=== PATIENT | female | born 1980 | race Caucasian/White ===

== ENCOUNTER → 2016-04-20 | Outpatient (REF) | payer BC ==
[~2016-04-20] MED LIST: /ESOM40CA OR; /LAMO10TA PO; ACET65TA OR; ACETAMINOPHEN PM PO; ADV100INH INH; B-12 INJ; CALCIUM ANTACID PO; CLARINEX PO; COLA100C2 OR; FIBEPOW11 PO; FLUOXETINE PO; HYDR50TA8 OR; HYDROXYZINE PO; LAXATIVE PO; LORA1TAB OR; MECLOFENAMATE PO; MELATONIN PO; METFORMIN PO; MIRALEX PO; MULTIVIT PO; NASONEX; OMEPPOW18 PO; PREM0.452 PO; PROZ40CA OR; SALI0.653; SENOKOT PO; TESS100C OR; VITAMIN B; VITAMIN D PO; [UNRECOGNIZED DRUG - CODE] PO; [UNRECOGNIZED DRUG - OTHER] PO; motrin PO; vicodin PO
== END ==
LOC: M SFHCPLAZ 17:03
PROVIDERS: ATTEND Family Medicine
DX: R35.0 Frequency of micturition (principal)

== ENCOUNTER 2016-04-29 16:53 | Emergency (ER) | payer BC ==
[2016-04-29] MEDS ORDERED: MORPHINE 2 MG/ML 1ML SYRINGE As Ordered ONE (19:23)
[2016-04-29] MEDS ORDERED: ONDANSETRON 4MG/2ML VIAL (J2405) As Ordered ONE (19:23)
[2016-04-29] MEDS ORDERED: GASTROGRAFIN SOLUTION 30ML (Q9963) As Ordered ONE (19:41)
[2016-04-29] MEDS ORDERED: NORCO, ANEXSIA 5/325MG TABLET (HYDROcodone/ACETAMINOPHEN) As Ordered ONE (19:50)
[2016-04-29] MEDS ORDERED: ONDANSETRON 4 MG ORAL DISINTEGRATING TAB (S0181) As Ordered ONE (19:50)
[2016-04-29 19:52] LABS: BASO # 0.1 K/mm3 (0.0-0.2); BASO % 1.3 % (0.0-1.0); EOS # 0.1 K/mm3 (0.0-0.50); EOS % 1.6 % (0.0-3.0); LARGE UNSTAINED CELL # 0.2 K/mm3 (0.0-0.4); LARGE UNSTAINED CELL % 2.8 % (0.0-4.0); LYMPH # 2.6 K/mm3 (1.5-4.5); LYMPH % 46.8 % (24.0-44.0); MEAN CORPUSCULAR HEMOGLOBIN 29.6 pg (27.0-33.0); MEAN CORPUSCULAR HGB CONC 32.8 g/dl (32.0-36.5); MEAN CORPUSCULAR VOLUME 90.3 fl (80.0-96.0); MONO # 0.2 K/mm3 (0.0-0.8); MONO % 4.4 % (0.0-5.0); NEUTROPHILS # 2.3 K/mm3 (1.8-7.7); NEUTROPHILS % 43.1 % (36.0-66.0); PLATELET COUNT, AUTOMATED 241 k/mm3 (150-450); RED CELL DISTRIBUTION WIDTH 14.2 % (11.5-14.5); WHITE BLOOD COUNT 5.2 K/mm3 (4.0-10.0)
[2016-04-29 20:52] LABS: ALBUMIN 3.6 GM/DL (3.2-5.2); ALBUMIN/GLOBULIN RATIO 1.33 (1.00-1.93); ALKALINE PHOSPHATASE 101 U/L (45-117); ALT/SGPT 28 U/L (12-78); AMYLASE 32 U/L (25-115); ANION GAP 8 MEQ/L (8-16); AST/SGOT 16 U/L (15-37); BILIRUBIN,DIRECT < 0.1 MG/DL (0.0-0.2); BILIRUBIN,TOTAL 0.2 MG/DL (0.2-1.0); BLOOD UREA NITROGEN 11 MG/DL (7-18); CALCIUM LEVEL 8.6 MG/DL (8.5-10.1); CARBON DIOXIDE LEVEL 26 MEQ/L (21-32); CHLORIDE LEVEL 106 MEQ/L (98-107); CREATININE FOR GFR 0.61 MG/DL (0.55-1.02); GLOMERULAR FILTRATION RATE > 60.0 (>60); GLUCOSE, FASTING 81 MG/DL (70-105); POTASSIUM SERUM 3.4 MEQ/L (3.5-5.1); SODIUM LEVEL 140 MEQ/L (136-145); TOTAL PROTEIN 6.3 GM/DL (6.4-8.2)
--- NOTE | 2016-04-29 22:10 | REPUSA ---
CT of the abdomen and pelvis without contrast Clinical statement: Pain. Technique: Multiple axial CT images were obtained from the base of the lungs to the floor of the pelv is utilizing 5 mm axial slices after administration of oral contrast. Coronal and sagittal reconstruc tions were also obtained. No comparison is available. Findings: Chest: The visualized lung bases are clear. Abdomen: The kidneys are normal in size bilaterally. There is no evidence of hydronephrosis or nephro lithiasis. The patient is status post gastric bypass. The liver, spleen, pancreas, and adrenal glands are unremarkable. The aorta demonstrates normal caliber and contour. There is no abdominal lymphaden opathy or ascites. Pelvis: The bowel is unremarkable, with no obstructive or inflammatory changes. The urinary bladder i s within normal limits. There is no pelvic lymphadenopathy or ascites. The other pelvic structures ap pear unremarkable. Bones: There are no suspicious osseous abnormalities seen. Impression: Unremarkable CT examination of the abdomen and pelvis.
--- NOTE | 2016-04-30 00:04 | EDDOCDS ---
Physician Documentation [facility] Name: Barb Dunne Age: 35 yrs Sex: Female : 1980 Arrival Date: 04/29/2016 Time: 16:53 Bed TR7 Private MD: So Hernandez E. Disposition: 04/29/16 23:11 Discharged to Home/Self Care. Impression: Upper abdominal pain, unspecified, Nausea with vomiting, unspecified, Diarrhea, unspecified. - Condition is Stable. - Discharge Instructions: Abdominal Pain, Adult, Diarrhea, Nausea and Vomiting. - Prescriptions for Bentyl 20 mg Oral Tablet - take 1 tablet by ORAL route every 6 hours As needed; 20 tablet. Pepcid 20 mg Oral Tablet - take 1 tablet by ORAL route once daily As needed; 20 tablet. ZOFRAN ODT 4 mg Oral - dissolve 1 tablet by ORAL route 3-4 times daily As needed do not chew, do not swallow whole; 20 tablet. - Medication Reconciliation, Local Pharmacy Hours form. - Follow up: Emergency Department; When: As needed; Reason: Worsening of conditions. Follow up: Private Physician; When: 2 - 3 days; Reason: Wound/Symptom Recheck, Recheck today's complaints, Continuance of care. - Problem is new. - Symptoms have improved. Historical: - Allergies: NSAIDS (gastric bypass); Reglan (gastric bypass); - Home Meds: 1. Vyvanse 70 mg oral cap 1 cap once daily 2. topiramate 150 mg oral CSpX 1 cap once daily 3. omeprazole 40 mg Oral cpDR 1 cap 2 times per day 4. montelukast 10 mg oral tab 1 tab once daily 5. lorazepam 1 mg Oral tab four times a day 6. Flovent 110 mcg/actuation Inhl aero 2 puffs 2 times per day 7. fluticasone 50 mcg/actuation nasal spsn once daily 8. levocetirizine 5 mg oral tab 1 tab once daily 9. lamotrigine 100mg in AM 200mg at HS Oral once daily 10. Hydroxyzine 100mg in am Oral 1 tab daily 11. trazodone 300 mg Oral tab at HS 12. Metformin Oral 2000mg at hs 13. Desvenlafaxine 100mg Oral AM 14. melatonin 5 mg Oral tab nightly 15. acetaminophen 500 mg Oral tab every 4 hours 16. Aleve 220 mg Oral tab 17. Antacid Liquid oral susp daily 18. Vitamin B-12 1,000 mcg Oral tab - PMHx: Asthma; Depression; GERD; Seasonal Allergies; PCOS; - PSHx: Gastric Bypass; Hysterectomy; Oophorectomy- bilateral; Cholecystectomy; - Social history: Smoking status: Patient states was never smoker of tobacco. No barriers to communication noted, The patient speaks fluent Tongan. - Family history: Not pertinent. - : The pt / caregiver states he / she is not on anticoagulants. Home medication list is obtained from the patient. - Exposure Risk Screening:: None identified. 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 4 in. (162.56 cm) (R); 21:51 BP 129 / 82; Pulse 64; Resp 16; Pulse Ox 98% on R/A; cz 23:01 BP 113 / 71; Pulse 67; Resp 18; Temp 98.9(TE); Pulse Ox 99% on R/A; Pain 6/10; jb5 16:55 Body Mass Index 26.61 (70.31 kg, 162.56 cm) dd6 MDM: 19:15 NS 0.9% 1000 ml IV at bolus once ordered. dt4 19:15 Ondansetron 4 mg IVP once ordered. dt4 19:15 IV Saline Lock ordered. dt4 19:15 Undress patient appropriately for examination ordered. dt4 19:15 morphine 2 mg IVP once ordered. dt4 19:16 Amylase Ordered. EDMS 19:16 Basic Metabolic Profile Ordered. EDMS 19:16 CBC with Diff Ordered. EDMS 19:16 Lipase Ordered. EDMS 19:16 Liver Profile Ordered. EDMS 19:16 Urinalysis Ordered. EDMS 19:16 CRP Ordered. EDMS 19:16 Urine Culture Ordered. EDMS 19:16 Type & Screen Ordered. EDMS 19:16 CT ABD & PELVIS: Oral Contrast Only Ordered. EDMS 19:16 NOTHING BY MOUTH+DIET ordered. EDMS 19:47 Ondansetron ODT Oral Disintegrating Tablet 4 mg PO once ordered. dt4 19:47 HYDROcodone-acetaminophen 5 mg-325 mg 1 tabs PO once ordered. dt4 19:48 Diatrizoate Meglumine & Sodium Liquid 10 ml PO once; mix in 290cc of water ordered. cz 20:12 Financial registration complete. zo 20:13 [facility] Payment Agreement was scanned into [employer] and attached to record. zo 20:13 Diatrizoate Meglumine & Sodium Liquid 10 ml PO once; mix in 290cc of water ordered. cz Administered Medications: 19:47 Not Given (Patient Refused): Ondansetron 4 mg IVP once dt4 19:47 Not Given (Patient Refused): morphine 2 mg IVP once dt4 19:48 Drug: Diatrizoate Meglumine & Sodium 10 ml [diatrizoate meglumine and diat.sodium 66 cz %-10 % oral solution (10 mL)] Route: PO; 19:50 Drug: NS 0.9% 1000 ml [sodium chloride 0.9 % intravenous solution] Route: IV; Rate: cz bolus; Site: right forearm; 04/30 00:03 Follow up: IV Status: Completed infusion cp1 04/29 19:53 Drug: Ondansetron ODT 4 mg [ondansetron 4 mg disintegrating tablet (1 tabs)] Route: PO; cz 19:53 Drug: HYDROcodone-acetaminophen 1 tabs [hydrocodone 5 mg-acetaminophen 325 mg tablet (1 cz tabs)] Route: PO; 20:13 Drug: Diatrizoate Meglumine & Sodium 10 ml [diatrizoate meglumine and diat.sodium 66 cz %-10 % oral solution (10 mL)] Route: PO; Signatures: [facility] Enrique Holland RN RN cz Olin, Zoeann zo Soosairaj, Rosemary, RN RN rs3 Belinda Perdomo LPN TRANSITION PROGRAM MANAGER cp1 Suma Ruby PA-C PA-C dt4 The chart was reviewed and I authenticate all verbal orders and agree with the evaluation and treatment provided.Attachments: 20:13 [facility] Payment Agreement zo MTDD
--- NOTE | 2016-04-30 00:05 | EDDOCDS ---
Nurse's Notes [facility] Name: Barb Dunne Age: 35 yrs Sex: Female : 1980 Arrival Date: 04/29/2016 Time: 16:53 Bed TR7 Private MD: So Hernandez E. Diagnosis: Upper abdominal pain, unspecified;Nausea with vomiting, unspecified;Diarrhea, unspecified Presentation: 04/29 17:04 Presenting complaint: Patient states: rectal bleeding, dizziness, diarrhea for a week. rs3 Adult Sepsis Screening: The patient does not have new or worsening altered mentation. Patient's respiratory rate is less than 22. Systolic blood pressure is greater than 100. Patient has a qSOFA score of 0- Negative Sepsis Screen. Suicide/Homicide risk assessment- the patient denies having any suicidal and/or homicidal ideations and does not present with any other emotional, behavioral or mental health complaints. Status: Patient is not a client service coordinator or dependent. Transition of care: patient was not received from another setting of care. 17:04 Acuity: CATARINA Level 3 rs3 17:04 Method Of Arrival: Walkin/Carried/Asstd rs3 Triage Assessment: 17:12 General: Appears in no apparent distress. Pain: Location: abdomen. HIV screening NA for rs3 this visit Offered previously. 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 Vyvanse 70 mg oral cap 1 cap once daily 2. topiramate 150 mg oral CSpX 1 cap once daily 3. omeprazole 40 mg Oral cpDR 1 cap 2 times per day 4. montelukast 10 mg oral tab 1 tab once daily 5. lorazepam 1 mg Oral tab four times a day 6. Flovent 110 mcg/actuation Inhl aero 2 puffs 2 times per day 7. fluticasone 50 mcg/actuation nasal spsn once daily 8. levocetirizine 5 mg oral tab 1 tab once daily 9. lamotrigine 100mg in AM 200mg at HS Oral once daily 10. Hydroxyzine 100mg in am Oral 1 tab daily 11. trazodone 300 mg Oral tab at HS 12. Metformin Oral 2000mg at hs 13. Desvenlafaxine 100mg Oral AM 14. melatonin 5 mg Oral tab nightly 15. acetaminophen 500 mg Oral tab every 4 hours 16. Aleve 220 mg Oral tab 17. Antacid Liquid oral susp daily 18. Vitamin B-12 1,000 mcg Oral tab - PMHx: Asthma; Depression; GERD; Seasonal Allergies; PCOS; - PSHx: Gastric Bypass; Hysterectomy; Oophorectomy- bilateral; Cholecystectomy; - Social history: Smoking status: Patient states was never smoker of tobacco. No barriers to communication noted, The patient speaks fluent Divehi. - Family history: Not pertinent. - : The pt / caregiver states he / she is not on anticoagulants. Home medication list is obtained from the patient. - Exposure Risk Screening:: None identified. Screenin:16 Screening information is obtained from prior medical records. Fall risk: No risks ms2 identified. Assistance ADL's: requires no assistance with activities of daily living. Abuse/DV Screen: The patient / caregiver reports he/she is: not in a situation that causes fear, pain or injury. Nutritional screening: No deficits noted. Advance Directives: Currently, there is no health care proxy. There is no active DNR order. There is no living will. There is no Power of Client Advocate. Advance directive information has not previously been placed in an [facility] medical record. Further advance directive information is declined. home support is adequate. Assessment: 19:14 General: Appears in no apparent distress, rectal exam done by PA -accompanied by marketing underwriter ms2 . Neurological: Level of Consciousness is awake, alert, obeys commands. Respiratory: Airway is patent Respiratory effort is even, unlabored, Respiratory pattern is regular, symmetrical. GI: Abdomen is flat, non- distended. Derm: Skin is pink, warm & dry. Musculoskeletal: Range of motion intact in all extremities. 19:26 General: marketing underwriter called to BR by pt ---pt having bright red blood on tissue paper and ms2 toilet water pinkened---PA aware. 20:02 General: Appears in no apparent distress, Behavior is appropriate for age. GI: Abdomen cz is obese, Abd is soft and non tender. 21:52 Reassessment: Patient appears in no apparent distress at this time. Patient states cz symptoms have improved. pt resting with stable vital signs and decrease in abdominal discomfort. 22:18 Adult Sepsis Screening: The patient does not have new or worsening altered mentation. cz Patient's respiratory rate is less than 22. Systolic blood pressure is greater than 100. Patient has a qSOFA score of 0- Negative Sepsis Screen. 22:21 General: Appears in no apparent distress, comfortable, Behavior is appropriate for age, jmb cooperative, Patient laying on stretcher, appears comfortable. Family at bedside. NO voiced complaints at this time. . Neurological: Level of Consciousness is awake, alert, obeys commands, Oriented to person, place, time. Respiratory: Airway is patent Respiratory effort is even, unlabored, Respiratory pattern is regular, symmetrical. 22:50 Reassessment: Patient appears in no apparent distress at this time. Patient states cz symptoms have improved. pt continues to rest quietly awaiting CT results. 22:59 General: Appears in no apparent distress, comfortable, Behavior is appropriate for age, jmb cooperative. Neurological: Level of Consciousness is awake, alert, obeys commands, Oriented to person, place, time. Respiratory: Airway is patent Respiratory effort is even, unlabored, Respiratory pattern is regular, symmetrical. Vital Signs: 16:55 BP 143 / 92; Pulse 83; Resp 18 S; Temp 96.4(O); Pulse Ox 98% on R/A; Weight 70.31 kg dd6 (R); Height 5 ft. 4 in. (162.56 cm) (R); 21:51 BP 129 / 82; Pulse 64; Resp 16; Pulse Ox 98% on R/A; cz 23:01 BP 113 / 71; Pulse 67; Resp 18; Temp 98.9(TE); Pulse Ox 99% on R/A; Pain 6/10; jb5 16:55 Body Mass Index 26.61 (70.31 kg, 162.56 cm) dd6 Vitals: 16:55 Log In Time: April 29, 2016 at 16:53. dd6 ED Course: 16:54 Patient visited by Giuseppe Casillas PCA. dd6 16:54 So Hernandez is Private Physician. dd6 16:54 Patient moved to Waiting dd6 16:56 Patient moved to Pre RCE dd6 17:05 Triage Initiated rs3 18:50 Patient moved to Triage 2 ct3 18:59 [facility] dt4 18:59 Cj Stone DO is Attending Physician. dt4 18:59 Patient visited by Suma Ruby PA-C. dt4 19:14 Patient visited by Caleb Macias,YANY. ms2 19:15 The patient / caregiver is instructed regarding the plan of care and ED course. ms2 19:21 Patient moved to I2 / M2 ms2 19:52 Patient visited by Belinda Perdomo LPN. cp1 20:02 Inserted saline lock: 20 gauge in right forearm. No procedures done that require cz assistance. 20:13 [facility] Payment Agreement was scanned into [employer] and attached to record. zo 20:19 Patient visited by Belinda Perdomo LPN. cp1 20:50 Patient visited by Belinda Perdomo LPN. cp1 20:58 Patient visited by Belinda Perdomo LPN. cp1 21:[address] jmb 21:49 Patient moved to I2 / M2 cz 21:51 Patient visited by Enrique Holland, YANY. cz 22:22 Patient visited by Derrell Schmitt RN. jmb 22:24 CT ABD & PELVIS: Oral Contrast Only Returned. EDMS 22:59 Patient visited by Derrell Schmitt,YANY. jmb 23:02 Patient visited by Lula Hu PCA. jb5 23:25 Patient moved to TR7 [facility] Administered Medications: 19:47 Not Given (Patient Refused): Ondansetron 4 mg IVP once dt4 19:47 Not Given (Patient Refused): morphine 2 mg IVP once dt4 19:48 Drug: Diatrizoate Meglumine & Sodium 10 ml [diatrizoate meglumine and diat.sodium 66 cz %-10 % oral solution (10 mL)] Route: PO; 19:50 Drug: NS 0.9% 1000 ml [sodium chloride 0.9 % intravenous solution] Route: IV; Rate: cz bolus; Site: right forearm; 04/30 00:03 Follow up: IV Status: Completed infusion 1 04/29 19:53 Drug: Ondansetron ODT 4 mg [ondansetron 4 mg disintegrating tablet (1 tabs)] Route: PO; cz 19:53 Drug: HYDROcodone-acetaminophen 1 tabs [hydrocodone 5 mg-acetaminophen 325 mg tablet (1 cz tabs)] Route: PO; 20:13 Drug: Diatrizoate Meglumine & Sodium 10 ml [diatrizoate meglumine and diat.sodium 66 cz %-10 % oral solution (10 mL)] Route: PO; Order Results: Lab Order: Amylase; SPEC'M 04/29/16 20:20 Test: AMYLASE; Value: 32; Range: 25-115; Units: U/L; Status: F Lab Order: Basic Metabolic Profile; SPEC'M 04/29/16 20:20 Test: GLUCOSE, FASTING; Value: 81; Range: 70-105; Units: MG/DL; Status: F Test: BLOOD UREA NITROGEN; Value: 11; Range: 7-18; Units: MG/DL; Status: F Test: CREATININE FOR GFR; Value: 0.61; Range: 0.55-1.02; Units: MG/DL; Status: F Test: GLOMERULAR FILTRATION RATE; Value: > 60.0; Range: >60; Status: F Test: SODIUM LEVEL; Value: 140; Range: 136-145; Units: MEQ/L; Status: F Test: POTASSIUM SERUM; Value: 3.4; Range: 3.5-5.1; Abnormal: Below low normal; Units: MEQ/L; Status: F Test: CHLORIDE LEVEL; Value: 106; Range: 98-107; Units: MEQ/L; Status: F Test: CARBON DIOXIDE LEVEL; Value: 26; Range: 21-32; Units: MEQ/L; Status: F Test: ANION GAP; Value: 8; Range: 8-16; Units: MEQ/L; Status: F Test: CALCIUM LEVEL; Value: 8.6; Range: 8.5-10.1; Units: MG/DL; Status: F Test Note: ; Units are mL/min/1.73 m2 Chronic Kidney Disease Staging per NKF: Stage I & II GFR >=60 Normal to Mildly Decreased Stage III GFR 30-59 Moderately Decreased Stage IV GFR 15-29 Severely Decreased Stage V GFR <15 Very Little GFR Left ESRD GFR <15 on 4TH GRADE TEACHER Lab Order: CBC with Diff; SPEC'M 04/29/16 19:30 Test: WHITE BLOOD COUNT; Value: 5.2; Range: 4.0-10.0; Units: K/mm3; Status: F Test: RED BLOOD COUNT; Value: 4.97; Range: 4.00-5.40; Units: M/mm3; Status: F Test: HEMOGLOBIN; Value: 14.7; Range: 12.0-16.0; Units: g/dl; Status: F Test: HEMATOCRIT; Value: 44.9; Range: 36.0-47.0; Units: %; Status: F Test: MEAN CORPUSCULAR VOLUME; Value: 90.3; Range: 80.0-96.0; Units: fl; Status: F Test: MEAN CORPUSCULAR HEMOGLOBIN; Value: 29.6; Range: 27.0-33.0; Units: pg; Status: F Test: MEAN CORPUSCULAR HGB CONC; Value: 32.8; Range: 32.0-36.5; Units: g/dl; Status: F Test: RED CELL DISTRIBUTION WIDTH; Value: 14.2; Range: 11.5-14.5; Units: %; Status: F Test: PLATELET COUNT, AUTOMATED; Value: 241; Range: 150-450; Units: k/mm3; Status: F Test: NEUTROPHILS %; Value: 43.1; Range: 36.0-66.0; Units: %; Status: F Test: LYMPH %; Value: 46.8; Range: 24.0-44.0; Abnormal: Above high normal; Units: %; Status: F Test: MONO %; Value: 4.4; Range: 0.0-5.0; Units: %; Status: F Test: EOS %; Value: 1.6; Range: 0.0-3.0; Units: %; Status: F Test: BASO %; Value: 1.3; Range: 0.0-1.0; Abnormal: Above high normal; Units: %; Status: F Test: LARGE UNSTAINED CELL %; Value: 2.8; Range: 0.0-4.0; Units: %; Status: F Test: NEUTROPHILS #; Value: 2.3; Range: 1.8-7.7; Units: K/mm3; Status: F Test: LYMPH #; Value: 2.6; Range: 1.5-4.5; Units: K/mm3; Status: F Test: MONO #; Value: 0.2; Range: 0.0-0.8; Units: K/mm3; Status: F Test: EOS #; Value: 0.1; Range: 0.0-0.50; Units: K/mm3; Status: F Test: BASO #; Value: 0.1; Range: 0.0-0.2; Units: K/mm3; Status: F Test: LARGE UNSTAINED CELL #; Value: 0.2; Range: 0.0-0.4; Units: K/mm3; Status: F Lab Order: Lipase; [facility] 04/29/16 20:20 Test: LIPASE; Value: 238; Range: 73-393; Units: U/L; Status: F Lab Order: Liver Profile; [facility] 04/29/16 20:20 Test: AST/SGOT; Value: 16; Range: 15-37; Units: U/L; Status: F Test: ALT/SGPT; Value: 28; Range: 12-78; Units: U/L; Status: F Test: ALKALINE PHOSPHATASE; Value: 101; Range: 45-117; Units: U/L; Status: F Test: BILIRUBIN,TOTAL; Value: 0.2; Range: 0.2-1.0; Units: MG/DL; Status: F Test: BILIRUBIN,DIRECT; Value: < 0.1; Range: 0.0-0.2; Units: MG/DL; Status: F Test: TOTAL PROTEIN; Value: 6.3; Range: 6.4-8.2; Abnormal: Below low normal; Units: GM/DL; Status: F Test: ALBUMIN; Value: 3.6; Range: 3.2-5.2; Units: GM/DL; Status: F Test: ALBUMIN/GLOBULIN RATIO; Value: 1.33; Range: 1.00-1.93; Status: F Lab Order: Type & Screen; [facility] 04/29/16 19:30 Test: BLOOD TYPE; Value: B POS; Status: F Test: AB SCREEN (INDIRECT MELODY)GEL; Value: NEGATIVE; Status: F Lab Order: Urinalysis; [facility] 04/29/16 19:18 Test: APPEARANCE, URINE; Value: HAZY; Range: CLEAR; Status: F Test: COLOR, URINE; Value: YELLOW; Range: YELLOW; Status: F Test: PH,URINE; Value: 5.0; Range: 5.0-9.0; Units: UNITS; Status: F Test: SPECIFIC GRAVITY URINE AUTO; Value: 1.019; Range: 1.002-1.035; Status: F Test: PROTEIN, URINE AUTO; Value: NEGATIVE; Range: NEGATIVE; Units: mg/dL; Status: F Test: GLUCOSE, URINE (UA) AUTO; Value: NEGATIVE; Range: NEGATIVE; Units: mg/dL; Status: F Test: KETONE, URINE AUTO; Value: TRACE; Range: NEGATIVE; Abnormal: Above high normal; Units: mg/dL; Status: F Test: UROBILINOGEN, URINE AUTO; Value: 0.2; Range: 0.0-2.0; Units: mg/dL; Status: F Test: BILIRUBIN, URINE AUTO; Value: NEGATIVE; Range: NEGATIVE; Status: F Test: NITRITE, URINE AUTO; Value: NEGATIVE; Range: NEGATIVE; Status: F Test: LEUKOCYTE ESTERASE, URINE AUTO; Value: NEGATIVE; Range: NEGATIVE; Status: F Test: BLOOD, URINE BLOOD; Value: NEGATIVE; Range: NEGATIVE; Status: F Test: WBC, URINE AUTO; Value: 1; Range: 0-3; Units: /HPF; Status: F Test: RBC, URINE AUTO; Value: 4; Range: 0-3; Abnormal: Above high normal; Units: /HPF; Status: F Test: BACTERIA, URINE AUTO; Value: NEGATIVE; Range: NEGATIVE; Status: F Test: SQUAMOUS EPITHELIAL CELL UR AU; Value: 0; Range: 0-6; Units: /HPF; Status: F Test: MUCUS, URINE; Value: SMALL; Range: NEGATIVE; Status: F Test: HYALINE CAST, URINE AUTO; Value: 9; Range: 0-1; Units: /LPF; Status: F Lab Order: CRP; SPEC'M 04/29/16 20:20 Test: C REACTIVE PROTEIN QUANTITATIV; Value: < 0.30; Range: 0.00-0.30; Units: MG/DL; Status: F Radiology Order: CT ABD & PELVIS: Oral Contrast Only Test: CT ABD & PELVIS: Oral Contrast Only REASON FOR EXAMINATION: RUQ, LUQ, EPISGASTRIC PAIN; ; CT of the abdomen and pelvis without contrast; Clinical statement: Pain.; Technique: Multiple axial CT images were obtained from the base of the lungs to the floor of the pelv; is utilizing 5 mm axial slices after administration of oral contrast. Coronal and sagittal reconstruc; tions were also obtained.; No comparison is available.; Findings:; Chest: The visualized lung bases are clear.; Abdomen: The kidneys are normal in size bilaterally. There is no evidence of hydronephrosis or nephro; lithiasis. The patient is status post gastric bypass. The liver, spleen, pancreas, and adrenal glands; are unremarkable. The aorta demonstrates normal caliber and contour. There is no abdominal lymphaden; opathy or ascites.; Pelvis: The bowel is unremarkable, with no obstructive or inflammatory changes. The urinary bladder i; s within normal limits. There is no pelvic lymphadenopathy or ascites. The other pelvic structures ap; pear unremarkable.; Bones: There are no suspicious osseous abnormalities seen.; Impression: Unremarkable CT examination of the abdomen and pelvis.; ; Outcome: 23:11 Discharge ordered by Provider. dt4 04/30 00:02 Discharge Assessment: Patient awake, alert and oriented x 3. No cognitive and/or cp1 functional deficits noted. Patient verbalized understanding of disposition instructions. patient administered narcotics - no. The following High Risk Discharge criteria are identified: None. Discharged to home ambulatory. Condition: stable Condition: improved. Discharge instructions given to patient, Instructed on discharge instructions, follow up and referral plans. medication usage, diet, Demonstrated understanding of instructions, medications, Pt was receptive of discharge instructions/ teaching. Prescriptions given X 3. CT Study completed. Property sent home with patient. :Personal belongings accompany Pt. 00:03 Patient left the ED. cp1 Signatures: Dispatcher [employer] EDMS Caleb Macias RN RN ms2 Enrique Holland RN RN cz Baker, Janet, ENGRAVER ORNAMENTAL DESIGN ENGRAVER ORNAMENTAL DESIGN jb5 Yolis Bellamy Daniell, ENGRAVER ORNAMENTAL DESIGN ENGRAVER ORNAMENTAL DESIGN dd6 Marva Kim RN RN rs3 Belinda Perdomo LPN LPN cp1 Rekha Prasad, ENGRAVER ORNAMENTAL DESIGN ENGRAVER ORNAMENTAL DESIGN ct3 Derrell Schmitt RN RN jmb Tschudi, Diane, PA-C PA-C dt4 MTDD
--- NOTE | 2016-05-02 01:04 | EDDOCDS ---
Physician Documentation [facility] Name: Barb Dunne Age: 35 yrs Sex: Female : 1980 Arrival Date: 04/29/2016 Time: 16:53 Bed TR7 Private MD: So Hernandez E. Disposition: 04/29/16 23:11 Discharged to Home/Self Care. Impression: Upper abdominal pain, unspecified, Nausea with vomiting, unspecified, Diarrhea, unspecified. - Condition is Stable. - Discharge Instructions: Abdominal Pain, Adult, Diarrhea, Nausea and Vomiting. - Prescriptions for Bentyl 20 mg Oral Tablet - take 1 tablet by ORAL route every 6 hours As needed; 20 tablet. Pepcid 20 mg Oral Tablet - take 1 tablet by ORAL route once daily As needed; 20 tablet. ZOFRAN ODT 4 mg Oral - dissolve 1 tablet by ORAL route 3-4 times daily As needed do not chew, do not swallow whole; 20 tablet. - Medication Reconciliation, Local Pharmacy Hours form. - Follow up: Emergency Department; When: As needed; Reason: Worsening of conditions. Follow up: Private Physician; When: 2 - 3 days; Reason: Wound/Symptom Recheck, Recheck today's complaints, Continuance of care. - Problem is new. - Symptoms have improved. Historical: - Allergies: NSAIDS (gastric bypass); Reglan (gastric bypass); - Home Meds: 1. Vyvanse 70 mg oral cap 1 cap once daily 2. topiramate 150 mg oral CSpX 1 cap once daily 3. omeprazole 40 mg Oral cpDR 1 cap 2 times per day 4. montelukast 10 mg oral tab 1 tab once daily 5. lorazepam 1 mg Oral tab four times a day 6. Flovent 110 mcg/actuation Inhl aero 2 puffs 2 times per day 7. fluticasone 50 mcg/actuation nasal spsn once daily 8. levocetirizine 5 mg oral tab 1 tab once daily 9. lamotrigine 100mg in AM 200mg at HS Oral once daily 10. Hydroxyzine 100mg in am Oral 1 tab daily 11. trazodone 300 mg Oral tab at HS 12. Metformin Oral 2000mg at hs 13. Desvenlafaxine 100mg Oral AM 14. melatonin 5 mg Oral tab nightly 15. acetaminophen 500 mg Oral tab every 4 hours 16. Aleve 220 mg Oral tab 17. Antacid Liquid oral susp daily 18. Vitamin B-12 1,000 mcg Oral tab - PMHx: Asthma; Depression; GERD; Seasonal Allergies; PCOS; - PSHx: Gastric Bypass; Hysterectomy; Oophorectomy- bilateral; Cholecystectomy; - Social history: Smoking status: Patient states was never smoker of tobacco. No barriers to communication noted, The patient speaks fluent [place]. - Family history: Not pertinent. - : The pt / caregiver states he / she is not on anticoagulants. Home medication list is obtained from the patient. - Exposure Risk Screening:: None identified. 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 4 in. (162.56 cm) (R); 21:51 BP 129 / 82; Pulse 64; Resp 16; Pulse Ox 98% on R/A; cz 23:01 BP 113 / 71; Pulse 67; Resp 18; Temp 98.9(TE); Pulse Ox 99% on R/A; Pain 6/10; jb5 16:55 Body Mass Index 26.61 (70.31 kg, 162.56 cm) dd6 MDM: 19:15 NS 0.9% 1000 ml IV at bolus once ordered. dt4 19:15 Ondansetron 4 mg IVP once ordered. dt4 19:15 IV Saline Lock ordered. dt4 19:15 Undress patient appropriately for examination ordered. dt4 19:15 morphine 2 mg IVP once ordered. dt4 19:16 Amylase Ordered. EDMS 19:16 Basic Metabolic Profile Ordered. EDMS 19:16 CBC with Diff Ordered. EDMS 19:16 Lipase Ordered. EDMS 19:16 Liver Profile Ordered. EDMS 19:16 Urinalysis Ordered. EDMS 19:16 CRP Ordered. EDMS 19:16 Urine Culture Ordered. EDMS 19:16 Type & Screen Ordered. EDMS 19:16 CT ABD & PELVIS: Oral Contrast Only Ordered. EDMS 19:16 NOTHING BY MOUTH+DIET ordered. EDMS 19:47 Ondansetron ODT Oral Disintegrating Tablet 4 mg PO once ordered. dt4 19:47 HYDROcodone-acetaminophen 5 mg-325 mg 1 tabs PO once ordered. dt4 19:48 Diatrizoate Meglumine & Sodium Liquid 10 ml PO once; mix in 290cc of water ordered. cz 20:12 Financial registration complete. zo 20:13 [facility] Payment Agreement was scanned into [employer] and attached to record. zo 20:13 Diatrizoate Meglumine & Sodium Liquid 10 ml PO once; mix in 290cc of water ordered. cz 04/30 10:04 T-Sheet-- Draft Copy was scanned into [employer] and attached to record. gb Administered Medications: 04/29 19:47 Not Given (Patient Refused): Ondansetron 4 mg IVP once dt4 19:47 Not Given (Patient Refused): morphine 2 mg IVP once dt4 19:48 Drug: Diatrizoate Meglumine & Sodium 10 ml [diatrizoate meglumine and diat.sodium 66 cz %-10 % oral solution (10 mL)] Route: PO; 19:50 Drug: NS 0.9% 1000 ml [sodium chloride 0.9 % intravenous solution] Route: IV; Rate: cz bolus; Site: right forearm; 04/30 00:03 Follow up: IV Status: Completed infusion cp1 04/29 19:53 Drug: Ondansetron ODT 4 mg [ondansetron 4 mg disintegrating tablet (1 tabs)] Route: PO; cz 19:53 Drug: HYDROcodone-acetaminophen 1 tabs [hydrocodone 5 mg-acetaminophen 325 mg tablet (1 cz tabs)] Route: PO; 20:13 Drug: Diatrizoate Meglumine & Sodium 10 ml [diatrizoate meglumine and diat.sodium 66 cz %-10 % oral solution (10 mL)] Route: PO; Signatures: Dispatcher [employer] EDMS Enrique Holland RN RN cz Cynthia Lowery, Reg Reg Yolis Martin RosemaryRN RN rs3 Belinda Perdomo,PRODUCT TRAINER PRODUCT TRAINER cp1 Suma Ruby, PA-C PA-C dt4 The chart was reviewed and I authenticate all verbal orders and agree with the evaluation and treatment provided.Attachments: 20:13 [facility] Payment Agreement zo 04/30 10:04 T-Sheet-- Draft Copy gb Chart Complete MTDD
--- NOTE | 2016-05-02 01:04 | EDDOCDS ---
Physician Documentation [facility] Name: Barb Dunne Age: 35 yrs Sex: Female : 1980 Arrival Date: 04/29/2016 Time: 16:53 Bed TR7 Private MD: So Hernandez E. Disposition: 04/29/16 23:11 Discharged to Home/Self Care. Impression: Upper abdominal pain, unspecified, Nausea with vomiting, unspecified, Diarrhea, unspecified. - Condition is Stable. - Discharge Instructions: Abdominal Pain, Adult, Diarrhea, Nausea and Vomiting. - Prescriptions for Bentyl 20 mg Oral Tablet - take 1 tablet by ORAL route every 6 hours As needed; 20 tablet. Pepcid 20 mg Oral Tablet - take 1 tablet by ORAL route once daily As needed; 20 tablet. ZOFRAN ODT 4 mg Oral - dissolve 1 tablet by ORAL route 3-4 times daily As needed do not chew, do not swallow whole; 20 tablet. - Medication Reconciliation, Local Pharmacy Hours form. - Follow up: Emergency Department; When: As needed; Reason: Worsening of conditions. Follow up: Private Physician; When: 2 - 3 days; Reason: Wound/Symptom Recheck, Recheck today's complaints, Continuance of care. - Problem is new. - Symptoms have improved. Historical: - Allergies: NSAIDS (gastric bypass); Reglan (gastric bypass); - Home Meds: 1. Vyvanse 70 mg oral cap 1 cap once daily 2. topiramate 150 mg oral CSpX 1 cap once daily 3. omeprazole 40 mg Oral cpDR 1 cap 2 times per day 4. montelukast 10 mg oral tab 1 tab once daily 5. lorazepam 1 mg Oral tab four times a day 6. Flovent 110 mcg/actuation Inhl aero 2 puffs 2 times per day 7. fluticasone 50 mcg/actuation nasal spsn once daily 8. levocetirizine 5 mg oral tab 1 tab once daily 9. lamotrigine 100mg in AM 200mg at HS Oral once daily 10. Hydroxyzine 100mg in am Oral 1 tab daily 11. trazodone 300 mg Oral tab at HS 12. Metformin Oral 2000mg at hs 13. Desvenlafaxine 100mg Oral AM 14. melatonin 5 mg Oral tab nightly 15. acetaminophen 500 mg Oral tab every 4 hours 16. Aleve 220 mg Oral tab 17. Antacid Liquid oral susp daily 18. Vitamin B-12 1,000 mcg Oral tab - PMHx: Asthma; Depression; GERD; Seasonal Allergies; PCOS; - PSHx: Gastric Bypass; Hysterectomy; Oophorectomy- bilateral; Cholecystectomy; - Social history: Smoking status: Patient states was never smoker of tobacco. No barriers to communication noted, The patient speaks fluent [place] Islander. - Family history: Not pertinent. - : The pt / caregiver states he / she is not on anticoagulants. Home medication list is obtained from the patient. - Exposure Risk Screening:: None identified. MANAGER LOAN: 04/29 17:12 LMP N/A - Hysterectomy rs3 Vital Signs: 16:55 BP 143 / 92; Pulse 83; Resp 18 S; Temp 96.4(O); Pulse Ox 98% on R/A; Weight 70.31 kg / dd6 155.01 lbs (R); Height 5 ft. 4 in. (162.56 cm) (R); 21:51 BP 129 / 82; Pulse 64; Resp 16; Pulse Ox 98% on R/A; cz 23:01 BP 113 / 71; Pulse 67; Resp 18; Temp 98.9(TE); Pulse Ox 99% on R/A; Pain 6/10; jb5 16:55 Body Mass Index 26.61 (70.31 kg, 162.56 cm) dd6 MDM: 19:15 NS 0.9% 1000 ml IV at bolus once ordered. dt4 19:15 Ondansetron 4 mg IVP once ordered. dt4 19:15 IV Saline Lock ordered. dt4 19:15 Undress patient appropriately for examination ordered. dt4 19:15 morphine 2 mg IVP once ordered. dt4 19:16 Amylase Ordered. EDMS 19:16 Basic Metabolic Profile Ordered. EDMS 19:16 CBC with Diff Ordered. EDMS 19:16 Lipase Ordered. EDMS 19:16 Liver Profile Ordered. EDMS 19:16 Urinalysis Ordered. EDMS 19:16 CRP Ordered. EDMS 19:16 Urine Culture Ordered. EDMS 19:16 Type & Screen Ordered. EDMS 19:16 CT ABD & PELVIS: Oral Contrast Only Ordered. EDMS 19:16 NOTHING BY MOUTH+DIET ordered. EDMS 19:47 Ondansetron ODT Oral Disintegrating Tablet 4 mg PO once ordered. dt4 19:47 HYDROcodone-acetaminophen 5 mg-325 mg 1 tabs PO once ordered. dt4 19:48 Diatrizoate Meglumine & Sodium Liquid 10 ml PO once; mix in 290cc of water ordered. cz 20:12 Financial registration complete. zo 20:13 [facility] Payment Agreement was scanned into [employer] and attached to record. zo 20:13 Diatrizoate Meglumine & Sodium Liquid 10 ml PO once; mix in 290cc of water ordered. cz 04/30 10:04 T-Sheet-- Draft Copy was scanned into [employer] and attached to record. gb Administered Medications: 04/29 19:47 Not Given (Patient Refused): Ondansetron 4 mg IVP once dt4 19:47 Not Given (Patient Refused): morphine 2 mg IVP once dt4 19:48 Drug: Diatrizoate Meglumine & Sodium 10 ml [diatrizoate meglumine and diat.sodium 66 cz %-10 % oral solution (10 mL)] Route: PO; 19:50 Drug: NS 0.9% 1000 ml [sodium chloride 0.9 % intravenous solution] Route: IV; Rate: cz bolus; Site: right forearm; 04/30 00:03 Follow up: IV Status: Completed infusion cp1 04/29 19:53 Drug: Ondansetron ODT 4 mg [ondansetron 4 mg disintegrating tablet (1 tabs)] Route: PO; cz 19:53 Drug: HYDROcodone-acetaminophen 1 tabs [hydrocodone 5 mg-acetaminophen 325 mg tablet (1 cz tabs)] Route: PO; 20:13 Drug: Diatrizoate Meglumine & Sodium 10 ml [diatrizoate meglumine and diat.sodium 66 cz %-10 % oral solution (10 mL)] Route: PO; Signatures: Dispatcher [employer] EDMS Enrique Holland RN RN cz Cynthia Lowery, Reg Reg Yolis Martin RosemaryRN RN rs3 Belinda Perdomo,PRINCIPAL SYSTEMS ENGINEER PRINCIPAL SYSTEMS ENGINEER cp1 Suma Ruby, PA-C PA-C dt4 The chart was reviewed and I authenticate all verbal orders and agree with the evaluation and treatment provided.Attachments: 20:13 [facility] Payment Agreement zo 04/30 10:04 T-Sheet-- Draft Copy gb Chart Complete MTDD
--- NOTE | 2016-05-02 01:04 | EDDOCDS ---
Nurse's Notes [facility] Name: Barb Dunne Age: 35 yrs Sex: Female : 1980 Arrival Date: 04/29/2016 Time: 16:53 Bed TR7 Private MD: So Hernandez E. Diagnosis: Upper abdominal pain, unspecified;Nausea with vomiting, unspecified;Diarrhea, unspecified Presentation: 04/29 17:04 Presenting complaint: Patient states: rectal bleeding, dizziness, diarrhea for a week. rs3 Adult Sepsis Screening: The patient does not have new or worsening altered mentation. Patient's respiratory rate is less than 22. Systolic blood pressure is greater than 100. Patient has a qSOFA score of 0- Negative Sepsis Screen. Suicide/Homicide risk assessment- the patient denies having any suicidal and/or homicidal ideations and does not present with any other emotional, behavioral or mental health complaints. 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 Transition of care: patient was not received from another setting of care. 17:04 Acuity: CATARINA Level 3 rs3 17:04 Method Of Arrival: Walkin/Carried/Asstd rs3 Triage Assessment: 17:12 General: Appears in no apparent distress. Pain: Location: abdomen. HIV screening NA for rs3 this visit Offered previously. 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 Vyvanse 70 mg oral cap 1 cap once daily 2. topiramate 150 mg oral CSpX 1 cap once daily 3. omeprazole 40 mg Oral cpDR 1 cap 2 times per day 4. montelukast 10 mg oral tab 1 tab once daily 5. lorazepam 1 mg Oral tab four times a day 6. Flovent 110 mcg/actuation Inhl aero 2 puffs 2 times per day 7. fluticasone 50 mcg/actuation nasal spsn once daily 8. levocetirizine 5 mg oral tab 1 tab once daily 9. lamotrigine 100mg in AM 200mg at HS Oral once daily 10. Hydroxyzine 100mg in am Oral 1 tab daily 11. trazodone 300 mg Oral tab at HS 12. Metformin Oral 2000mg at hs 13. Desvenlafaxine 100mg Oral AM 14. melatonin 5 mg Oral tab nightly 15. acetaminophen 500 mg Oral tab every 4 hours 16. Aleve 220 mg Oral tab 17. Antacid Liquid oral susp daily 18. Vitamin B-12 1,000 mcg Oral tab - PMHx: Asthma; Depression; GERD; Seasonal Allergies; PCOS; - PSHx: Gastric Bypass; Hysterectomy; Oophorectomy- bilateral; Cholecystectomy; - Social history: Smoking status: Patient states was never smoker of tobacco. No barriers to communication noted, The patient speaks fluent Persian. - Family history: Not pertinent. - : The pt / caregiver states he / she is not on anticoagulants. Home medication list is obtained from the patient. - Exposure Risk Screening:: None identified. Screenin:16 Screening information is obtained from prior medical records. Fall risk: No risks ms2 identified. Assistance ADL's: requires no assistance with activities of daily living. Abuse/DV Screen: The patient / caregiver reports he/she is: not in a situation that causes fear, pain or injury. Nutritional screening: No deficits noted. Advance Directives: Currently, there is no health care proxy. There is no active DNR order. There is no living will. There is no Power of Dressing Room Attendant. Advance directive information has not previously been placed in an [facility] medical record. Further advance directive information is declined. home support is adequate. Assessment: 19:14 General: Appears in no apparent distress, rectal exam done by PA -accompanied by auto service writer ms2 . Neurological: Level of Consciousness is awake, alert, obeys commands. Respiratory: Airway is patent Respiratory effort is even, unlabored, Respiratory pattern is regular, symmetrical. GI: Abdomen is flat, non- distended. Derm: Skin is pink, warm & dry. Musculoskeletal: Range of motion intact in all extremities. 19:26 General: auto service writer called to BR by pt ---pt having bright red blood on tissue paper and ms2 toilet water pinkened---PA aware. 20:02 General: Appears in no apparent distress, Behavior is appropriate for age. GI: Abdomen cz is obese, Abd is soft and non tender. 21:52 Reassessment: Patient appears in no apparent distress at this time. Patient states cz symptoms have improved. pt resting with stable vital signs and decrease in abdominal discomfort. 22:18 Adult Sepsis Screening: The patient does not have new or worsening altered mentation. cz Patient's respiratory rate is less than 22. Systolic blood pressure is greater than 100. Patient has a qSOFA score of 0- Negative Sepsis Screen. 22:21 General: Appears in no apparent distress, comfortable, Behavior is appropriate for age, jmb cooperative, Patient laying on stretcher, appears comfortable. Family at bedside. NO voiced complaints at this time. . Neurological: Level of Consciousness is awake, alert, obeys commands, Oriented to person, place, time. Respiratory: Airway is patent Respiratory effort is even, unlabored, Respiratory pattern is regular, symmetrical. 22:50 Reassessment: Patient appears in no apparent distress at this time. Patient states cz symptoms have improved. pt continues to rest quietly awaiting CT results. 22:59 General: Appears in no apparent distress, comfortable, Behavior is appropriate for age, jmb cooperative. Neurological: Level of Consciousness is awake, alert, obeys commands, Oriented to person, place, time. Respiratory: Airway is patent Respiratory effort is even, unlabored, Respiratory pattern is regular, symmetrical. Vital Signs: 16:55 BP 143 / 92; Pulse 83; Resp 18 S; Temp 96.4(O); Pulse Ox 98% on R/A; Weight 70.31 kg dd6 (R); Height 5 ft. 4 in. (162.56 cm) (R); 21:51 BP 129 / 82; Pulse 64; Resp 16; Pulse Ox 98% on R/A; cz 23:01 BP 113 / 71; Pulse 67; Resp 18; Temp 98.9(TE); Pulse Ox 99% on R/A; Pain 6/10; jb5 16:55 Body Mass Index 26.61 (70.31 kg, 162.56 cm) dd6 Vitals: 16:55 Log In Time: April 29, 2016 at 16:53. dd6 ED Course: 16:54 Patient visited by Giuseppe Casillas PCA. dd6 16:54 So Hernandez is Private Physician. dd6 16:54 Patient moved to Waiting dd6 16:56 Patient moved to Pre RCE dd6 17:05 Triage Initiated rs3 18:50 Patient moved to Triage 2 ct3 18:59 [facility] dt4 18:59 Cj Stone DO is Attending Physician. dt4 18:59 Patient visited by Suma Ruby PA-C. dt4 19:14 Patient visited by Caleb Macias,YANY. ms2 19:15 The patient / caregiver is instructed regarding the plan of care and ED course. ms2 19:21 Patient moved to I2 / M2 ms2 19:52 Patient visited by Belinda Perdomo LPN. cp1 20:02 Inserted saline lock: 20 gauge in right forearm. No procedures done that require cz assistance. 20:13 [facility] Payment Agreement was scanned into [employer] and attached to record. zo 20:19 Patient visited by Belinda Perdomo LPN. cp1 20:50 Patient visited by Belinda Perdomo LPN. cp1 20:58 Patient visited by Belinda Perdomo LPN. cp1 21:[address] jmb 21:49 Patient moved to I2 / M2 cz 21:51 Patient visited by Enrique Holland, YANY. cz 22:22 Patient visited by Derrell Schmitt RN. jmb 22:24 CT ABD & PELVIS: Oral Contrast Only Returned. EDMS 22:59 Patient visited by Derrell Schmitt,YANY. jmb 23:02 Patient visited by Lula Hu PCA. jb5 23:25 Patient moved to TR7 [facility] 04/30 10:04 T-Sheet-- Draft Copy was scanned into [employer] and attached to record. gb Administered Medications: 04/29 19:47 Not Given (Patient Refused): Ondansetron 4 mg IVP once dt4 19:47 Not Given (Patient Refused): morphine 2 mg IVP once dt4 19:48 Drug: Diatrizoate Meglumine & Sodium 10 ml [diatrizoate meglumine and diat.sodium 66 cz %-10 % oral solution (10 mL)] Route: PO; 19:50 Drug: NS 0.9% 1000 ml [sodium chloride 0.9 % intravenous solution] Route: IV; Rate: cz bolus; Site: right forearm; 04/30 00:03 Follow up: IV Status: Completed infusion cp1 04/29 19:53 Drug: Ondansetron ODT 4 mg [ondansetron 4 mg disintegrating tablet (1 tabs)] Route: PO; cz 19:53 Drug: HYDROcodone-acetaminophen 1 tabs [hydrocodone 5 mg-acetaminophen 325 mg tablet (1 cz tabs)] Route: PO; 20:13 Drug: Diatrizoate Meglumine & Sodium 10 ml [diatrizoate meglumine and diat.sodium 66 cz %-10 % oral solution (10 mL)] Route: PO; Order Results: Lab Order: Amylase; SPEC'M 04/29/16 20:20 Test: AMYLASE; Value: 32; Range: 25-115; Units: U/L; Status: F Lab Order: Basic Metabolic Profile; SPEC'M 04/29/16 20:20 Test: GLUCOSE, FASTING; Value: 81; Range: 70-105; Units: MG/DL; Status: F Test: BLOOD UREA NITROGEN; Value: 11; Range: 7-18; Units: MG/DL; Status: F Test: CREATININE FOR GFR; Value: 0.61; Range: 0.55-1.02; Units: MG/DL; Status: F Test: GLOMERULAR FILTRATION RATE; Value: > 60.0; Range: >60; Status: F Test: SODIUM LEVEL; Value: 140; Range: 136-145; Units: MEQ/L; Status: F Test: POTASSIUM SERUM; Value: 3.4; Range: 3.5-5.1; Abnormal: Below low normal; Units: MEQ/L; Status: F Test: CHLORIDE LEVEL; Value: 106; Range: 98-107; Units: MEQ/L; Status: F Test: CARBON DIOXIDE LEVEL; Value: 26; Range: 21-32; Units: MEQ/L; Status: F Test: ANION GAP; Value: 8; Range: 8-16; Units: MEQ/L; Status: F Test: CALCIUM LEVEL; Value: 8.6; Range: 8.5-10.1; Units: MG/DL; Status: F Test Note: ; Units are mL/min/1.73 m2 Chronic Kidney Disease Staging per NKF: Stage I & II GFR >=60 Normal to Mildly Decreased Stage III GFR 30-59 Moderately Decreased Stage IV GFR 15-29 Severely Decreased Stage V GFR <15 Very Little GFR Left ESRD GFR <15 on TALENT COORDINATOR Lab Order: CBC with Diff; SPEC'M 04/29/16 19:30 Test: WHITE BLOOD COUNT; Value: 5.2; Range: 4.0-10.0; Units: K/mm3; Status: F Test: RED BLOOD COUNT; Value: 4.97; Range: 4.00-5.40; Units: M/mm3; Status: F Test: HEMOGLOBIN; Value: 14.7; Range: 12.0-16.0; Units: g/dl; Status: F Test: HEMATOCRIT; Value: 44.9; Range: 36.0-47.0; Units: %; Status: F Test: MEAN CORPUSCULAR VOLUME; Value: 90.3; Range: 80.0-96.0; Units: fl; Status: F Test: MEAN CORPUSCULAR HEMOGLOBIN; Value: 29.6; Range: 27.0-33.0; Units: pg; Status: F Test: MEAN CORPUSCULAR HGB CONC; Value: 32.8; Range: 32.0-36.5; Units: g/dl; Status: F Test: RED CELL DISTRIBUTION WIDTH; Value: 14.2; Range: 11.5-14.5; Units: %; Status: F Test: PLATELET COUNT, AUTOMATED; Value: 241; Range: 150-450; Units: k/mm3; Status: F Test: NEUTROPHILS %; Value: 43.1; Range: 36.0-66.0; Units: %; Status: F Test: LYMPH %; Value: 46.8; Range: 24.0-44.0; Abnormal: Above high normal; Units: %; Status: F Test: MONO %; Value: 4.4; Range: 0.0-5.0; Units: %; Status: F Test: EOS %; Value: 1.6; Range: 0.0-3.0; Units: %; Status: F Test: BASO %; Value: 1.3; Range: 0.0-1.0; Abnormal: Above high normal; Units: %; Status: F Test: LARGE UNSTAINED CELL %; Value: 2.8; Range: 0.0-4.0; Units: %; Status: F Test: NEUTROPHILS #; Value: 2.3; Range: 1.8-7.7; Units: K/mm3; Status: F Test: LYMPH #; Value: 2.6; Range: 1.5-4.5; Units: K/mm3; Status: F Test: MONO #; Value: 0.2; Range: 0.0-0.8; Units: K/mm3; Status: F Test: EOS #; Value: 0.1; Range: 0.0-0.50; Units: K/mm3; Status: F Test: BASO #; Value: 0.1; Range: 0.0-0.2; Units: K/mm3; Status: F Test: LARGE UNSTAINED CELL #; Value: 0.2; Range: 0.0-0.4; Units: K/mm3; Status: F Lab Order: Lipase; [facility]' 04/29/16 20:20 Test: LIPASE; Value: 238; Range: 73-393; Units: U/L; Status: F Lab Order: Liver Profile; [facility]' 04/29/16 20:20 Test: AST/SGOT; Value: 16; Range: 15-37; Units: U/L; Status: F Test: ALT/SGPT; Value: 28; Range: 12-78; Units: U/L; Status: F Test: ALKALINE PHOSPHATASE; Value: 101; Range: 45-117; Units: U/L; Status: F Test: BILIRUBIN,TOTAL; Value: 0.2; Range: 0.2-1.0; Units: MG/DL; Status: F Test: BILIRUBIN,DIRECT; Value: < 0.1; Range: 0.0-0.2; Units: MG/DL; Status: F Test: TOTAL PROTEIN; Value: 6.3; Range: 6.4-8.2; Abnormal: Below low normal; Units: GM/DL; Status: F Test: ALBUMIN; Value: 3.6; Range: 3.2-5.2; Units: GM/DL; Status: F Test: ALBUMIN/GLOBULIN RATIO; Value: 1.33; Range: 1.00-1.93; Status: F Lab Order: Type & Screen; [facility]' 04/29/16 19:30 Test: BLOOD TYPE; Value: B POS; Status: F Test: AB SCREEN (INDIRECT MELODY)GEL; Value: NEGATIVE; Status: F Lab Order: Urinalysis; [facility]' 04/29/16 19:18 Test: APPEARANCE, URINE; Value: HAZY; Range: CLEAR; Status: F Test: COLOR, URINE; Value: YELLOW; Range: YELLOW; Status: F Test: PH,URINE; Value: 5.0; Range: 5.0-9.0; Units: UNITS; Status: F Test: SPECIFIC GRAVITY URINE AUTO; Value: 1.019; Range: 1.002-1.035; Status: F Test: PROTEIN, URINE AUTO; Value: NEGATIVE; Range: NEGATIVE; Units: mg/dL; Status: F Test: GLUCOSE, URINE (UA) AUTO; Value: NEGATIVE; Range: NEGATIVE; Units: mg/dL; Status: F Test: KETONE, URINE AUTO; Value: TRACE; Range: NEGATIVE; Abnormal: Above high normal; Units: mg/dL; Status: F Test: UROBILINOGEN, URINE AUTO; Value: 0.2; Range: 0.0-2.0; Units: mg/dL; Status: F Test: BILIRUBIN, URINE AUTO; Value: NEGATIVE; Range: NEGATIVE; Status: F Test: NITRITE, URINE AUTO; Value: NEGATIVE; Range: NEGATIVE; Status: F Test: LEUKOCYTE ESTERASE, URINE AUTO; Value: NEGATIVE; Range: NEGATIVE; Status: F Test: BLOOD, URINE BLOOD; Value: NEGATIVE; Range: NEGATIVE; Status: F Test: WBC, URINE AUTO; Value: 1; Range: 0-3; Units: /HPF; Status: F Test: RBC, URINE AUTO; Value: 4; Range: 0-3; Abnormal: Above high normal; Units: /HPF; Status: F Test: BACTERIA, URINE AUTO; Value: NEGATIVE; Range: NEGATIVE; Status: F Test: SQUAMOUS EPITHELIAL CELL UR AU; Value: 0; Range: 0-6; Units: /HPF; Status: F Test: MUCUS, URINE; Value: SMALL; Range: NEGATIVE; Status: F Test: HYALINE CAST, URINE AUTO; Value: 9; Range: 0-1; Units: /LPF; Status: F Lab Order: Urine Culture; SPEC'M 04/29/16 19:18 Test: URINE CULTURE; Value: URINE CULTURE RESULT NO GROWTH; Status: F Lab Order: CRP; SPEC'M 04/29/16 20:20 Test: C REACTIVE PROTEIN QUANTITATIV; Value: < 0.30; Range: 0.00-0.30; Units: MG/DL; Status: F Radiology Order: CT ABD & PELVIS: Oral Contrast Only Test: CT ABD & PELVIS: Oral Contrast Only REASON FOR EXAMINATION: RUQ, LUQ, EPISGASTRIC PAIN; ; CT of the abdomen and pelvis without contrast; Clinical statement: Pain.; Technique: Multiple axial CT images were obtained from the base of the lungs to the floor of the pelv; is utilizing 5 mm axial slices after administration of oral contrast. Coronal and sagittal reconstruc; tions were also obtained.; No comparison is available.; Findings:; Chest: The visualized lung bases are clear.; Abdomen: The kidneys are normal in size bilaterally. There is no evidence of hydronephrosis or nephro; lithiasis. The patient is status post gastric bypass. The liver, spleen, pancreas, and adrenal glands; are unremarkable. The aorta demonstrates normal caliber and contour. There is no abdominal lymphaden; opathy or ascites.; Pelvis: The bowel is unremarkable, with no obstructive or inflammatory changes. The urinary bladder i; s within normal limits. There is no pelvic lymphadenopathy or ascites. The other pelvic structures ap; pear unremarkable.; Bones: There are no suspicious osseous abnormalities seen.; Impression: Unremarkable CT examination of the abdomen and pelvis.; ; Outcome: 23:11 Discharge ordered by Provider. dt4 04/30 00:02 Discharge Assessment: Patient awake, alert and oriented x 3. No cognitive and/or cp1 functional deficits noted. Patient verbalized understanding of disposition instructions. patient administered narcotics - no. The following High Risk Discharge criteria are identified: None. Discharged to home ambulatory. Condition: stable Condition: improved. Discharge instructions given to patient, Instructed on discharge instructions, follow up and referral plans. medication usage, diet, Demonstrated understanding of instructions, medications, Pt was receptive of discharge instructions/ teaching. Prescriptions given X 3. CT Study completed. Property sent home with patient. :Personal belongings accompany Pt. 00:03 Patient left the ED. cp1 Signatures: Dispatcher [employer] EDMS Caleb Macias RN RN ms2 Enrique Holland RN RN cz Cynthia Lowery, Reg Reg gb Lula Hu, EARTHMOVING PLANT OPERATOR EARTHMOVING PLANT OPERATOR jb5 Yolis Bellamy Daniell, EARTHMOVING PLANT OPERATOR EARTHMOVING PLANT OPERATOR dd6 Marva Kim RN RN rs3 Belinda Perdomo LPN LPN cp1 Rekha Prasad, EARTHMOVING PLANT OPERATOR EARTHMOVING PLANT OPERATOR ct3 Derrell Schmitt,RN RN Suma Valladares, PA-C PA-C dt4 Chart Complete MTDD
== END 2016-04-30 00:03 | disposition home or self-care (01) ==
LOC: M ED 16:53
DX: R10.10 Upper abdominal pain, unspecified (principal); R11.2 Nausea with vomiting, unspecified; R19.7 Diarrhea, unspecified; J45.909 Unspecified asthma, uncomplicated; F32.9 Major depressive disorder, single episode, unspecified; E28.2 Polycystic ovarian syndrome; N30.10 Interstitial cystitis (chronic) without hematuria; Z98.84 Bariatric surgery status; K21.9 Gastro-esophageal reflux disease without esophagitis; Z79.84 Long term (current) use of oral hypoglycemic drugs; Z79.899 Other long term (current) drug therapy; Z88.6 Allergy status to analgesic agent; Z88.8 Allergy status to other drugs, medicaments and biological substances
CPT/HCPCS: 74176; 80048; 80076; 81001; 82150; 83690; 85025; 86140; 86850; 86900; 86901; 87086; 96360; 96361; 99284; J2405; Q9963

== ENCOUNTER → 2016-05-25 | Outpatient (REF) | payer BC ==
[2016-05-25 11:57] LABS: FREE T4 1.16 NG/DL (0.76-1.46)
[2016-05-25 14:16] LABS: CONTROL LINE INT CTR LINE PRESENT; HIV SCRN NEGATIVE (NEGATIVE); HIV SCRN1 NEGATIVE (NEGATIVE)
== END | disposition home or self-care (01) ==
LOC: M SFHCPLAZ 09:23
PROVIDERS: ATTEND Family Medicine
DX: R63.4 Abnormal weight loss (principal)

== ENCOUNTER → 2016-06-27 | Outpatient (REF) | payer BC | LOC: M SMT 17:04 | PROVIDERS: ATTEND Nurse Practitioner Women's Health | DX: R39.89 Other symptoms and signs involving the genitourinary system (principal) ==

== ENCOUNTER → 2016-06-28 | Outpatient (CLI) | payer BC ==
--- NOTE | 2016-06-28 19:18 | REP ---
Clinical: Weight loss . Comparison: 07/10/2014 . Technique: PA and lateral. Findings: The mediastinum and cardiac silhouette are normal. The lung benoit are clear and without acute consolidation, effusion, or pneumothorax. The skeletal structures are intact and normal. Impression: 1. No acute cardiopulmonary process. Signed by Lonnie Starks MD 06/28/2016 07:09 P
== END ==
LOC: M RAD 18:45
PROVIDERS: ATTEND Family Medicine
DX: R63.4 Abnormal weight loss (principal)

== ENCOUNTER → 2016-07-04 | Outpatient (REF) | payer BC ==
[2016-07-04 11:41] LABS: MEAN CORPUSCULAR HEMOGLOBIN 30.6 pg (27.0-33.0); MEAN CORPUSCULAR HGB CONC 33.5 g/dl (32.0-36.5); MEAN CORPUSCULAR VOLUME 91.2 fl (80.0-96.0); RED CELL DISTRIBUTION WIDTH 13.7 % (11.5-14.5); WHITE BLOOD COUNT 3.6 K/mm3 (4.0-10.0)
== END ==
LOC: M SFHCPLAZ 08:41
PROVIDERS: ATTEND Family Medicine
DX: R53.83 Other fatigue (principal)

== ENCOUNTER → 2016-07-06 | Outpatient (CLI) | payer BC ==
[2016-07-06 19:54] LABS: MEAN CORPUSCULAR HEMOGLOBIN 29.6 pg (27.0-33.0); MEAN CORPUSCULAR HGB CONC 32.5 g/dl (32.0-36.5); MEAN CORPUSCULAR VOLUME 90.9 fl (80.0-96.0); RED CELL DISTRIBUTION WIDTH 13.5 % (11.5-14.5); WHITE BLOOD COUNT 3.6 K/mm3 (4.0-10.0)
[2016-07-06 21:13] LABS: BASOPHILS 1 % (0-4); EOSINOPHILS 9 % (0-5)
[2016-07-06 21:14] LABS: ACANTHOCYTES 1+; POIKILOCYTOSIS 1+; SCHISTOCYTES 1+
[2016-07-06 21:15] LABS: OVALOCYTES 1+
== END ==
LOC: M LAB 17:22
PROVIDERS: ATTEND Family Medicine
DX: D72.819 Decreased white blood cell count, unspecified (principal)

== ENCOUNTER → 2016-07-06 | Outpatient (REF) | payer BC | LOC: M LAB REF 16:00 | PROVIDERS: ATTEND Nurse Practitioner Adult Health | DX: R30.0 Dysuria (principal) ==

== ENCOUNTER → 2016-08-16 | Outpatient (REF) | payer BC ==
[2016-08-16 18:46] LABS: CALCIUM OXALATE CRYSTALS SMALL
== END ==
LOC: M LAB REF 16:27
PROVIDERS: ATTEND Nurse Practitioner Women's Health
DX: Z87.440 Personal history of urinary (tract) infections (principal)

== ENCOUNTER → 2017-01-30 | Outpatient (REF) | payer BC ==
[2017-01-30 11:45] LABS: EOS # 0.2 10^3/uL (0.0-0.50); EOS % 5.5 % (0.0-3.0); LYMPH # 1.6 10^3/uL (1.5-4.5); LYMPH % 51.1 % (24.0-44.0); MEAN CORPUSCULAR HEMOGLOBIN 29.6 pg (27.0-33.0); MEAN CORPUSCULAR HGB CONC 32.8 g/dl (32.0-36.5); MEAN CORPUSCULAR VOLUME 90.1 fl (80.0-96.0); MONO # 0.2 10^3/uL (0.0-0.8); MONO % 6.8 % (0.0-5.0); NEUTROPHILS # 1.1 10^3/uL (1.8-7.7); NEUTROPHILS % 35.6 % (36.0-66.0); PLATELET COUNT, AUTOMATED 276 10^3/uL (150-450); RED CELL DISTRIBUTION WIDTH 12.1 % (11.5-14.5); WHITE BLOOD COUNT 3.1 10^3/uL (4.0-10.0)
[2017-01-30 12:23] LABS: ALBUMIN 3.6 GM/DL (3.2-5.2); ALBUMIN/GLOBULIN RATIO 1.24 (1.00-1.93); ALKALINE PHOSPHATASE 124 U/L (45-117); ALT/SGPT 90 U/L (12-78); ANION GAP 5 MEQ/L (8-16); AST/SGOT 31 U/L (15-37); BILIRUBIN,TOTAL 0.2 MG/DL (0.2-1.0); BLOOD UREA NITROGEN 12 MG/DL (7-18); CALCIUM LEVEL 9.2 MG/DL (8.5-10.1); CARBON DIOXIDE LEVEL 32 MEQ/L (21-32); CHLORIDE LEVEL 103 MEQ/L (98-107); CHOLESTEROL LEVEL 136 MG/DL (<200); CREATININE FOR GFR 0.57 MG/DL (0.55-1.02); GLOMERULAR FILTRATION RATE > 60.0 (>60); GLUCOSE, FASTING 80 MG/DL (70-105); POTASSIUM SERUM 4.6 MEQ/L (3.5-5.1); SODIUM LEVEL 140 MEQ/L (136-145); TOTAL PROTEIN 6.5 GM/DL (6.4-8.2); TRIGLYCERIDES LEVEL 32 MG/DL (<150)
== END ==
LOC: M SFHCPLAZ 09:18
PROVIDERS: ATTEND Family Medicine
DX: Z13.220 Encounter for screening for lipoid disorders (principal); D72.819 Decreased white blood cell count, unspecified; R63.4 Abnormal weight loss; Z13.1 Encounter for screening for diabetes mellitus

== ENCOUNTER → 2017-05-22 | Outpatient (REF) | payer BC ==
[2017-05-24 14:13] LABS: HPV HYBRID CAPTURE II Negative (Negative)
== END ==
LOC: M LAB REF 13:44
DX: Z12.72 Encounter for screening for malignant neoplasm of vagina (principal)
CPT/HCPCS: G0123

== ENCOUNTER → 2017-05-26 | Outpatient (CLI) | payer BC ==
[2017-05-26 08:24] LABS: HEMATOCRIT 40.5 % (36.0-47.0); MEAN CORPUSCULAR HEMOGLOBIN 28.5 pg (27.0-33.0); MEAN CORPUSCULAR HGB CONC 32.1 g/dl (32.0-36.5); MEAN CORPUSCULAR VOLUME 88.8 fl (80.0-96.0); PLATELET COUNT, AUTOMATED 232 10^3/uL (150-450); RED BLOOD COUNT 4.56 10^6/uL (4.00-5.40); RED CELL DISTRIBUTION WIDTH 13.4 % (11.5-14.5); WHITE BLOOD COUNT 2.9 10^3/uL (4.0-10.0)
[2017-05-26 08:55] LABS: ALBUMIN 3.6 GM/DL (3.2-5.2); ALBUMIN/GLOBULIN RATIO 1.24 (1.00-1.93); ALKALINE PHOSPHATASE 122 U/L (45-117); ALT/SGPT 119 U/L (12-78); ANION GAP 5 MEQ/L (8-16); AST/SGOT 89 U/L (7-37); BILIRUBIN,TOTAL 0.2 MG/DL (0.2-1.0); BLOOD UREA NITROGEN 19 MG/DL (7-18); CALCIUM LEVEL 8.5 MG/DL (8.5-10.1); CARBON DIOXIDE LEVEL 33 MEQ/L (21-32); CHLORIDE LEVEL 102 MEQ/L (98-107); CREATININE FOR GFR 0.55 MG/DL (0.55-1.30); FERRITIN 6 NG/ML (8-252); GLOMERULAR FILTRATION RATE > 60.0 (>60); GLUCOSE, FASTING 91 MG/DL (70-100); IRON (FE) 61 UG/DL (50-170); POTASSIUM SERUM 4.7 MEQ/L (3.5-5.1); SODIUM LEVEL 140 MEQ/L (136-145); TOTAL PROTEIN 6.5 GM/DL (6.4-8.2)
[2017-05-26 09:28] LABS: TOTAL 25(OH) VITAMIN D 40.7 NG/ML (30.0-100.0)
[2017-05-26 16:37] LABS: DIFF SLIDE NUMBER 109
[2017-05-26 16:42] LABS: ATYPICAL LYMPH 4 % (0-5); BASOPHILS 2 % (0-4); EOSINOPHILS 1 % (0-5); LYMPHOCYTES 49 % (16-52); MONOCYTES 6 % (0-8); NEUTROPHILS 38 % (35-75); PLATELET CLUMPS SMALL AMT; PLATELET ESTIMATE NORMAL (NORMAL)
[2017-05-26 16:44] LABS: POIKILOCYTOSIS 1+
== END ==
LOC: M LAB 07:43
DX: D72.819 Decreased white blood cell count, unspecified (principal); R53.83 Other fatigue
CPT/HCPCS: 83540

== ENCOUNTER → 2017-05-26 | Outpatient (CLI) | payer BC ==
[2017-05-26 09:28] LABS: CORTISOL AM 16.9 UG/DL (4.3-22.4)
[2017-05-26 09:29] LABS: VITAMIN B12 LEVEL 392 PG/ML (247-911)
== END ==
LOC: M LAB 07:51
DX: R63.4 Abnormal weight loss (principal)
CPT/HCPCS: 84443

== ENCOUNTER → 2017-06-12 | Outpatient (REF) | payer BC ==
[2017-06-12 13:23] LABS: REASON FOR REVIEW OTHER; SLIDE REVIEW Report; SOURCE PERIPHERAL SMEAR
[2017-06-12 13:46] LABS: VITAMIN B12 LEVEL 433 PG/ML
[2017-06-12 13:47] LABS: FOLATE > 24.0 NG/ML
[2017-06-13 14:14] LABS: ANTINUCLEAR ANTIBODIES DIRECT Negative (Negative)
== END ==
LOC: M LAB REF 12:23
DX: D72.819 Decreased white blood cell count, unspecified (principal)

== ENCOUNTER → 2017-06-21 | Outpatient (REF) | payer BC ==
[2017-06-21 13:40] LABS: FERRITIN 6 NG/ML (8-252); IRON (FE) 67 UG/DL (50-170); PERCENT SATURATION 11.8 % (13.2-45.0); TOTAL IRON BINDING CAPACITY 569 UG/DL (250-450)
== END ==
LOC: M LAB REF 12:43
DX: D70.9 Neutropenia, unspecified (principal)
CPT/HCPCS: 83550

== ENCOUNTER → 2017-06-23 | Outpatient (CLI) | payer BC | LOC: M RAD 10:03 | DX: R10.2 Pelvic and perineal pain (principal) | CPT/HCPCS: 76857 ==

== ENCOUNTER → 2017-06-29 | Outpatient (CLI) | payer BC | LOC: M WHC 08:21 | DX: M81.8 Other osteoporosis without current pathological fracture (principal); M85.88 Other specified disorders of bone density and structure, other site; M85.851 Other specified disorders of bone density and structure, right thigh; M85.852 Other specified disorders of bone density and structure, left thigh | CPT/HCPCS: 77080 ==

== ENCOUNTER → 2017-06-29 | Outpatient (REF) | payer BC ==
[2017-06-29 13:30] LABS: APPEARANCE, URINE HAZY (CLEAR); BACTERIA, URINE AUTO NEGATIVE (NEGATIVE); BILIRUBIN, URINE AUTO NEGATIVE (NEGATIVE); BLOOD, URINE BLOOD NEGATIVE (NEGATIVE); COLOR, URINE YELLOW (YELLOW); GLUCOSE, URINE (UA) AUTO NEGATIVE (NEGATIVE); KETONE, URINE AUTO NEGATIVE (NEGATIVE); LEUKOCYTE ESTERASE, URINE AUTO NEGATIVE (NEGATIVE); NITRITE, URINE AUTO NEGATIVE (NEGATIVE); PROTEIN, URINE AUTO NEGATIVE (NEGATIVE); RBC, URINE AUTO 1 /HPF (0-3); SPECIFIC GRAVITY URINE AUTO 1.015 (1.002-1.035); SQUAMOUS EPITHELIAL CELL UR AU 0 /HPF (0-6); UROBILINOGEN, URINE AUTO 0.2 mg/dL (0.0-2.0); WBC, URINE AUTO 0 /HPF (0-3)
== END ==
LOC: M LAB REF 13:12
DX: D50.9 Iron deficiency anemia, unspecified (principal)

== ENCOUNTER → 2017-10-27 | Outpatient (CLI) | payer BC ==
[2017-10-27 12:07] LABS: ALBUMIN 3.7 GM/DL (3.2-5.2); ALBUMIN/GLOBULIN RATIO 1.32 (1.00-1.93); ALKALINE PHOSPHATASE 119 U/L (45-117); ALT/SGPT 144 U/L (12-78); ANION GAP 6 MEQ/L (8-16); AST/SGOT 65 U/L (7-37); BILIRUBIN,TOTAL 0.4 MG/DL (0.2-1.0); BLOOD UREA NITROGEN 20 MG/DL (7-18); CALCIUM LEVEL 8.8 MG/DL (8.5-10.1); CARBON DIOXIDE LEVEL 33 MEQ/L (21-32); CHLORIDE LEVEL 100 MEQ/L (98-107); CREATININE FOR GFR 0.54 MG/DL (0.55-1.30); GLOMERULAR FILTRATION RATE > 60.0 (>60); GLUCOSE, FASTING 76 MG/DL (70-100); POTASSIUM SERUM 4.5 MEQ/L (3.5-5.1); SODIUM LEVEL 139 MEQ/L (136-145); TOTAL PROTEIN 6.5 GM/DL (6.4-8.2)
== END ==
LOC: M LAB 10:31
DX: K76.0 Fatty (change of) liver, not elsewhere classified (principal); M54.5 Low back pain
CPT/HCPCS: 72114

== ENCOUNTER 2017-11-14 15:48 | Outpatient (CLI) | payer BC ==
[2017-11-14] MEDS ORDERED: ZOLEDRONIC ACID 5 MG in APPROPRIATE DILUENT 1 EA IV (17:00)
== END 2017-11-14 17:00 | disposition home or self-care (01) ==
LOC: M INFU 15:48
DX: M81.0 Age-related osteoporosis without current pathological fracture (principal); Z98.84 Bariatric surgery status; Z88.5 Allergy status to narcotic agent; Z88.8 Allergy status to other drugs, medicaments and biological substances; Z79.84 Long term (current) use of oral hypoglycemic drugs; Z79.899 Other long term (current) drug therapy
CPT/HCPCS: 96365

== ENCOUNTER → 2017-11-21 | Outpatient (REF) | payer BC ==
[2017-11-21 19:13] LABS: FERRITIN 55 NG/ML (8-252); IRON (FE) 81 UG/DL (50-170); TOTAL IRON BINDING CAPACITY 385 UG/DL (250-450)
== END ==
LOC: M LAB REF 17:29
DX: E61.1 Iron deficiency (principal); D70.9 Neutropenia, unspecified
CPT/HCPCS: 83550

== ENCOUNTER → 2018-02-16 | Outpatient (CLI) | payer BC ==
[2018-02-16 15:43] LABS: ALBUMIN 3.7 GM/DL (3.2-5.2); ALBUMIN/GLOBULIN RATIO 1.28 (1.00-1.93); ALKALINE PHOSPHATASE 87 U/L (45-117); ALT/SGPT 81 U/L (12-78); AST/SGOT 55 U/L (7-37); BILIRUBIN,DIRECT < 0.1 MG/DL (0.0-0.2); BILIRUBIN,TOTAL 0.2 MG/DL (0.2-1.0); CHOLESTEROL LEVEL 168 MG/DL (<200); CHOLESTEROL RISK RATIO 1.846 (<5); FERRITIN 33 NG/ML (8-252); HDL CHOLESTEROL 91 MG/DL (>40); IRON (FE) 90 UG/DL (50-170); LDL CHOLESTEROL 56 MG/DL (<100); NON-HDL-C 77 MG/DL; PERCENT SATURATION 22.1 % (13.2-45.0); TOTAL IRON BINDING CAPACITY 408 UG/DL (250-450); TOTAL PROTEIN 6.6 GM/DL (6.4-8.2); TRIGLYCERIDES LEVEL 103 MG/DL (<150)
[2018-02-21 00:06] LABS: ANTI-MITOCHONDRIAL ANTIBODY 2.4 Units (0.0-20.0); IgA SERUM (part of Subclasses) 310 mg/dL (87-352); LIVER-KIDNEY MICROSOMAL ABY 1.8 Units (0.0-20.0); TISSUE TRANSGLUTAMINASE IgA <2 U/mL (0-3)
[2018-02-21 00:06] LABS: ANTI-SMOOTH MUSCLE ANTIBODY 6 Units (0-19)
[2018-02-23 10:22] LABS: ALPHA 2-MACROGLOBULINS,QN 252 mg/dL (110-276); ALT (SGPT) P5P 64 IU/L (0-40); APOLIPOPROTEIN A-1 230 mg/dL (116-209); AST (SGOT) P5P 59 IU/L (0-40); BILIRUBIN, TOTAL 0.2 mg/dL (0.0-1.2); CHOLESTEROL TOTAL 165 mg/dL (100-199); FIBROSIS SCORE 0.04 (0.00-0.21); GGT 11 IU/L (0-60); GLUCOSE, SERUM 133 mg/dL (65-99); HAPTOGLOBIN 64 mg/dL (34-200); HEIGHT 64 in (.); NASH SCORE 0.25 (0.25); STEATOSIS SCORE 0.16 (0.00-0.30); TRIGLYCERIDES 106 mg/dL (0-149); WEIGHT 157 LBS (.)
== END ==
LOC: M LAB 14:23
DX: R94.5 Abnormal results of liver function studies (principal)
CPT/HCPCS: 83010

== ENCOUNTER → 2019-02-13 | Outpatient (CLI) | payer BC ==
[~2019-02-13] MED LIST changes: -/ESOM40CA OR; -/LAMO10TA PO; +ACET-683 PO; +ACET500T15 PO; +ALIVTAB PO; +B-12100011 SL; +FAMO1TAB11 PO; +FLON1SPR; +FLUT22IN; +FLUT22IN INH; +LAMI1TAB7 PO; +LAXA5TAB PO; +LORA1TAB12 PO; +MELA10TA4 PO; +METF-699 PO; +MONT10TA2 PO; +NEXI1CAP3 OR; +OMEP40CA97 PO; +RANI-356 PO; +TRAZ300T2 PO; +TUMS500C PO; +VENTAER IN; +VIIB40TA PO; +[UNRECOGNIZED DRUG - CODE] PO
[2019-02-13 09:56] LABS: FREE T4 0.95 NG/DL (0.76-1.46); THYROID STIMULATING HORMONE 2.57 uIU/ML (0.358-3.740)
== END ==
LOC: M LAB 07:45
PROVIDERS: ATTEND Internal Medicine Hematology
DX: E07.9 Disorder of thyroid, unspecified (principal)

== ENCOUNTER → 2019-02-13 | Outpatient (CLI) | payer BC ==
[2019-02-13 09:28] LABS: BASO % 0.8 % (0.0-1.0); EOS # 0.1 10^3/uL (0.0-0.5); EOS % 3.9 % (0.0-3.0); HEMATOCRIT 42.2 % (36.0-47.0); HEMOGLOBIN 13.7 g/dl (12.0-15.5); LYMPH # 1.8 10^3/uL (1.5-5.0); LYMPH % 48.6 % (24.0-44.0); MEAN CORPUSCULAR HEMOGLOBIN 29.9 pg (27.0-33.0); MEAN CORPUSCULAR HGB CONC 32.5 g/dl (32.0-36.5); MEAN CORPUSCULAR VOLUME 92.1 fl (80.0-96.0); MONO # 0.3 10^3/uL (0.0-0.8); MONO % 6.9 % (0.0-5.0); NEUTROPHILS # 1.4 10^3/uL (1.5-8.5); NEUTROPHILS % 39.5 % (36.0-66.0); PLATELET COUNT, AUTOMATED 206 10^3/uL (150-450); RED BLOOD COUNT 4.58 10^6/uL (4.00-5.40); WHITE BLOOD COUNT 3.6 10^3/uL (4.0-10.0)
[2019-02-13 09:53] LABS: ALBUMIN 3.2 GM/DL (3.2-5.2); ALT/SGPT 65 U/L (12-78); BILIRUBIN,DIRECT < 0.1 MG/DL (0.0-0.2); BILIRUBIN,TOTAL 0.3 MG/DL (0.2-1.0); CHOLESTEROL LEVEL 166 MG/DL (<200); CHOLESTEROL RISK RATIO 1.886 (<5); HDL CHOLESTEROL 88 MG/DL (>40); LDL CHOLESTEROL 60 MG/DL (<100); NON-HDL-C 78 MG/DL; TOTAL PROTEIN 6.2 GM/DL (6.4-8.2); TRIGLYCERIDES LEVEL 92 MG/DL (<150)
== END ==
LOC: M LAB 07:40
PROVIDERS: ATTEND Internal Medicine Gastroenterology
DX: R10.13 Epigastric pain (principal); R94.5 Abnormal results of liver function studies

== ENCOUNTER → 2019-02-14 | Outpatient (REF) | payer BC ==
[2019-02-14 17:18] LABS: HEMATOCRIT 44.2 % (36.0-47.0)
[2019-02-14 17:31] LABS: BLOOD UREA NITROGEN 13 MG/DL (7-18); CARBON DIOXIDE LEVEL 32 MEQ/L (21-32); CHLORIDE LEVEL 102 MEQ/L (98-107); CREATININE FOR GFR 0.57 MG/DL (0.55-1.30); GLOMERULAR FILTRATION RATE > 60.0 (>60); GLUCOSE, FASTING 102 MG/DL (70-100); MAGNESIUM LEVEL 1.9 MG/DL (1.8-2.4); PHOSPHORUS LEVEL 3.1 MG/DL (2.5-4.9); POTASSIUM SERUM 4.3 MEQ/L (3.5-5.1); SODIUM LEVEL 138 MEQ/L (136-145)
[2019-02-14 17:34] LABS: TOTAL 25(OH) VITAMIN D 27.5 NG/ML (30.0-100.0); VITAMIN B12 LEVEL 436 PG/ML (247-911)
[2019-02-14 17:57] LABS: HEMOGLOBIN A1c 5.5 %
== END ==
LOC: M SFHCPLAZ 15:12
PROVIDERS: ATTEND Family Medicine
DX: Z13.1 Encounter for screening for diabetes mellitus (principal); K91.2 Postsurgical malabsorption, not elsewhere classified; E55.9 Vitamin D deficiency, unspecified

== ENCOUNTER → 2020-01-14 | Outpatient (CLI) | payer BC ==
[~2020-01-14] MED LIST changes: -LORA1TAB12 PO; +LORA1TAB4 PO; -METF-699 PO; +METF-817 PO; -MONT10TA2 PO; +MONT10TA4 PO; -RANI-356 PO; +RANI-397 PO
[2020-01-14 17:34] LABS: BASO % 0.6 % (0.0-1.0); EOS % 0.8 % (0.0-3.0); HEMATOCRIT 41.4 % (36.0-47.0); HEMOGLOBIN 13.2 g/dl (12.0-15.5); LYMPH # 1.7 10^3/uL (1.5-5.0); LYMPH % 34.1 % (24.0-44.0); MEAN CORPUSCULAR HEMOGLOBIN 28.1 pg (27.0-33.0); MEAN CORPUSCULAR HGB CONC 31.9 g/dl (32.0-36.5); MEAN CORPUSCULAR VOLUME 88.1 fl (80.0-96.0); MONO # 0.2 10^3/uL (0.0-0.8); MONO % 4.6 % (0.0-5.0); NEUTROPHILS % 59.7 % (36.0-66.0); PLATELET COUNT, AUTOMATED 261 10^3/uL (150-450)
[2020-01-14 18:15] LABS: ALBUMIN 3.4 GM/DL (3.2-5.2); ALT/SGPT 53 U/L (12-78); BILIRUBIN,TOTAL 0.1 MG/DL (0.2-1.0); BLOOD UREA NITROGEN 12 MG/DL (7-18); CALCIUM LEVEL 8.5 MG/DL (8.5-10.1); CARBON DIOXIDE LEVEL 28 MEQ/L (21-32); CHLORIDE LEVEL 108 MEQ/L (98-107); CREATININE FOR GFR 0.67 MG/DL (0.55-1.30); GLOMERULAR FILTRATION RATE > 60.0 (>60); GLUCOSE, FASTING 109 MG/DL (70-100); IRON (FE) 42 UG/DL (50-170); POTASSIUM SERUM 4.4 MEQ/L (3.5-5.1); SODIUM LEVEL 139 MEQ/L (136-145); TOTAL PROTEIN 6.8 GM/DL (6.4-8.2)
[2020-01-14 18:16] LABS: TOTAL 25(OH) VITAMIN D 31.4 NG/ML (30.0-100.0)
[2020-01-14 18:17] LABS: VITAMIN B12 LEVEL 368 PG/ML (247-911)
== END ==
LOC: M LAB 17:06
PROVIDERS: ATTEND Nurse Practitioner Psychiatric/Mental Health
DX: F33.40 Major depressive disorder, recurrent, in remission, unspecified (principal)

== ENCOUNTER → 2022-05-05 | Outpatient (CLI) | payer BC ==
[~2022-05-05] MED LIST changes: -MONT10TA4 PO; +MONT10TA97 PO; +OMEP40CA4 PO; -OMEP40CA97 PO
[2022-05-05 17:33] LABS: BASO # 0.1 10^3/uL (0.0-0.2); BASO % 0.9 % (0.0-1.0); EOS # 0.1 10^3/uL (0.0-0.5); EOS % 0.9 % (0.0-3.0); HEMATOCRIT 31.8 % (36.0-47.0); LYMPH % 30.5 % (24.0-44.0); MEAN CORPUSCULAR HEMOGLOBIN 20.6 pg (27.0-33.0); MEAN CORPUSCULAR HGB CONC 28.3 g/dl (32.0-36.5); MEAN CORPUSCULAR VOLUME 72.9 fl (80.0-96.0); MONO # 0.4 10^3/uL (0.0-0.8); MONO % 5.8 % (2.0-8.0); NEUTROPHILS % 61.6 % (36.0-66.0); PLATELET COUNT, AUTOMATED 454 10^3/uL (150-450); RED BLOOD COUNT 4.36 10^6/uL (4.00-5.40); WHITE BLOOD COUNT 6.6 10^3/uL (4.0-10.0)
[2022-05-05 17:38] LABS: HEMOGLOBIN A1c 5.5 % (4.0-6.0)
[2022-05-05 17:59] LABS: ALBUMIN 3.8 G/DL (3.2-5.2); ALKALINE PHOSPHATASE 108 U/L (46-116); ALT/SGPT 36 U/L (7.0-40); AST/SGOT 32 U/L (<34); BILIRUBIN,TOTAL 0.2 MG/DL (0.3-1.2); BLOOD UREA NITROGEN 18 MG/DL (9-23); CALCIUM LEVEL 8.7 MG/DL (8.5-10.1); CARBON DIOXIDE LEVEL 28 MMOL/L (20-31); CHLORIDE LEVEL 103 MMOL/L (98-107); CHOLESTEROL LEVEL 188 MG/DL (<200); CHOLESTEROL RISK RATIO 2.19 (<5); CREATININE FOR GFR 0.81 MG/DL (0.55-1.30); GLOMERULAR FILTRATION RATE > 60.0 (>58); GLUCOSE, FASTING 89 MG/DL (60-100); HDL CHOLESTEROL 85.7 MG/DL (>40); IRON (FE) 14 UG/DL (50-170); LDL CHOLESTEROL 75.9 MG/DL (<100); NON-HDL-C 102 MG/DL; SODIUM LEVEL 140 MMOL/L (136-145); THYROID STIMULATING HORMONE 1.289 uIU/ML (0.55-4.78); TOTAL 25(OH) VITAMIN D 26.7 NG/ML (20.0-100.0); TOTAL IRON BINDING CAPACITY 473 UG/DL (250-425); TRIGLYCERIDES LEVEL 132 MG/DL (<150)
[2022-05-05 18:02] LABS: VITAMIN B12 LEVEL 475 PG/ML (211-911)
== END ==
LOC: M PLALAB 15:26
PROVIDERS: ATTEND Physician Assistant
DX: K91.2 Postsurgical malabsorption, not elsewhere classified (principal)

== ENCOUNTER 2022-05-12 10:39 | Outpatient (CLI) | payer BC ==
[~2022-05-12] VITALS: Ht 165.1 cm; Wt 114.3 kg
[~2022-05-12 10:39] MED LIST changes: +ALBUTEROL SULFATE 2.5MG/0.5ML INH NEB SOLN INH PRN; +EPINEPHrine INJ 1 MG/ML 1ML AMP IM PRN; +NS 1,000 ML IV ONE; +diphenhydrAMINE 50MG/ML VIAL IV PRN; +methylPREDNISolone 125MG 2ML VIAL IV PRN
[2022-05-12] MEDS ORDERED: IRON SUCROSE 25 MG in NS 23.75 ML IV ONE ×4 (11:00)
[2022-05-12] MEDS ORDERED: NS IV ONE (11:00)
[2022-05-12] MEDS ORDERED: IRON SUCROSE 175 MG in NS 100 ML IV ONE (11:00)
[2022-05-12] MEDS ORDERED: IRON SUCROSE IV ONE (11:00)
[2022-05-12 11:03] VITALS: BP 121/77
[2022-05-12 13:23] VITALS: BP 132/63
== END 2022-05-12 12:45 | disposition home or self-care (01) ==
LOC: M INFU 10:39
PROVIDERS: ATTEND Physician Assistant
DX: D50.9 Iron deficiency anemia, unspecified (principal); Z88.5 Allergy status to narcotic agent; Z88.6 Allergy status to analgesic agent
CPT/HCPCS: 96365; J1756

== ENCOUNTER 2022-05-16 13:29 | Emergency (ER) | payer BC ==
[~2022-05-16] VITALS: Ht 162.6 cm; Wt 114.0 kg
[~2022-05-16 13:29] MED LIST changes: -ALBUTEROL SULFATE 2.5MG/0.5ML INH NEB SOLN INH PRN; -EPINEPHrine INJ 1 MG/ML 1ML AMP IM PRN; -NS 1,000 ML IV ONE; -diphenhydrAMINE 50MG/ML VIAL IV PRN; -methylPREDNISolone 125MG 2ML VIAL IV PRN
[2022-05-16 14:47] LABS: BASO # 0.1 10^3/uL (0.0-0.2); BASO % 0.8 % (0.0-1.0); EOS # 0.1 10^3/uL (0.0-0.5); HEMATOCRIT 32.6 % (36.0-47.0); HEMOGLOBIN 9.3 g/dl (12.0-15.5); LYMPH # 2.1 10^3/uL (1.5-5.0); MEAN CORPUSCULAR HGB CONC 28.5 g/dl (32.0-36.5); MEAN CORPUSCULAR VOLUME 73.6 fl (80.0-96.0); MONO # 0.3 10^3/uL (0.0-0.8); MONO % 5.6 % (2.0-8.0); NEUTROPHILS # 3.3 10^3/uL (1.5-8.5); NEUTROPHILS % 56.3 % (36.0-66.0); PLATELET COUNT, AUTOMATED 376 10^3/uL (150-450); RED BLOOD COUNT 4.43 10^6/uL (4.00-5.40); WHITE BLOOD COUNT 5.9 10^3/uL (4.0-10.0)
[2022-05-16 15:17] LABS: ALBUMIN 3.7 G/DL (3.2-5.2); ALKALINE PHOSPHATASE 108 U/L (46-116); ALT/SGPT 52 U/L (7.0-40); AST/SGOT 46 U/L (<34); BILIRUBIN,DIRECT < 0.1 MG/DL (<0.4); BILIRUBIN,TOTAL 0.2 MG/DL (0.3-1.2); BLOOD UREA NITROGEN 15 MG/DL (9-23); CALCIUM LEVEL 9.2 MG/DL (8.5-10.1); CARBON DIOXIDE LEVEL 28 MMOL/L (20-31); CHLORIDE LEVEL 103 MMOL/L (98-107); CK-MB VALUE MASS < 1.0 NG/ML (<3.6); CPK CREATINE PHOSPHOKINASE 77 U/L (34-145); CREATININE FOR GFR 0.68 MG/DL (0.55-1.30); GLOMERULAR FILTRATION RATE > 60.0 (>58); GLUCOSE, FASTING 99 MG/DL (60-100); MB/CK RELATIVE INDEX 1.29 (< OR =4); POTASSIUM SERUM 4.7 MMOL/L (3.5-5.1); SODIUM LEVEL 138 MMOL/L (136-145); TOTAL PROTEIN 6.8 G/DL (5.7-8.2)
[2022-05-16 15:34] VITALS: BP 133/83
[2022-05-16] MEDS ORDERED: NS 1,000 ML IV ONE (19:40)
[2022-05-16] MEDS ORDERED: ISOVUE-370 76% 100ML VIAL As Ordered ONE (19:49)
[2022-05-16] MEDS ORDERED: NITROFURANTOIN (MACROBID) 100 MG CAP PO ONE (21:05)
[2022-05-16] MEDS ORDERED: MACR100C43 PO (21:06)
== END 2022-05-16 21:19 | disposition home or self-care (01) ==
LOC: M ED 13:29
DX: N39.0 Urinary tract infection, site not specified (principal); D50.9 Iron deficiency anemia, unspecified; R06.00 Dyspnea, unspecified; J45.909 Unspecified asthma, uncomplicated; I10 Essential (primary) hypertension; K21.9 Gastro-esophageal reflux disease without esophagitis; G40.89 Other seizures; F41.9 Anxiety disorder, unspecified; E28.2 Polycystic ovarian syndrome; Z88.6 Allergy status to analgesic agent; Z88.5 Allergy status to narcotic agent; Z79.83 Long term (current) use of bisphosphonates; Z79.811 Long term (current) use of aromatase inhibitors; Z79.899 Other long term (current) drug therapy

== ENCOUNTER → 2022-07-21 | Outpatient (CLI) | payer BC ==
[~2022-07-21] MED LIST changes: +MACR100C43 PO
[2022-07-21 18:21] LABS: BASO # 0.1 10^3/uL (0.0-0.2); EOS # 0.1 10^3/uL (0.0-0.5); EOS % 0.8 % (0.0-3.0); HEMOGLOBIN 9.6 g/dl (12.0-15.5); LYMPH # 2.1 10^3/uL (1.5-5.0); MEAN CORPUSCULAR HEMOGLOBIN 21.6 pg (27.0-33.0); MEAN CORPUSCULAR HGB CONC 29.1 g/dl (32.0-36.5); MEAN CORPUSCULAR VOLUME 74.2 fl (80.0-96.0); MONO # 0.4 10^3/uL (0.0-0.8); MONO % 5.6 % (2.0-8.0); NEUTROPHILS # 3.7 10^3/uL (1.5-8.5); NEUTROPHILS % 58.3 % (36.0-66.0); PLATELET COUNT, AUTOMATED 402 10^3/uL (150-450); RED BLOOD COUNT 4.45 10^6/uL (4.00-5.40); WHITE BLOOD COUNT 6.3 10^3/uL (4.0-10.0)
[2022-07-21 18:56] LABS: PERCENT SATURATION 3.1 % (13.2-45.0)
== END ==
LOC: M PLALAB 14:51
PROVIDERS: ATTEND Physician Assistant
DX: D64.9 Anemia, unspecified (principal)

== ENCOUNTER 2022-07-28 07:36 | Outpatient (CLI) | payer BC ==
[~2022-07-28] VITALS: Ht 163.8 cm; Wt 113.8 kg
[~2022-07-28 07:36] MED LIST changes: +ALBUTEROL SULFATE 2.5MG/0.5ML INH NEB SOLN INH PRN; +EPINEPHrine INJ 1 MG/ML 1ML AMP IM PRN; +diphenhydrAMINE 50MG/ML VIAL IV PRN; +methylPREDNISolone 125MG 2ML VIAL IV PRN
[2022-07-28 07:48] VITALS: BP 123/85
[2022-07-28] MEDS ORDERED: NS 1,000 ML IV SCH (08:00)
[2022-07-28] MEDS ORDERED: IRON SUCROSE 250 MG in NS 237.5 ML IV ONE (08:00)
[2022-07-28 10:10] VITALS: BP 140/65
== END 2022-07-28 10:10 ==
LOC: M INFU 07:36
PROVIDERS: ATTEND Physician Assistant
DX: D50.9 Iron deficiency anemia, unspecified (principal); Z88.6 Allergy status to analgesic agent; Z88.5 Allergy status to narcotic agent; Z88.8 Allergy status to other drugs, medicaments and biological substances
CPT/HCPCS: 96365; J1756

== ENCOUNTER → 2022-09-21 | Outpatient (CLI) | payer BC ==
[~2022-09-21] MED LIST changes: -ALBUTEROL SULFATE 2.5MG/0.5ML INH NEB SOLN INH PRN; -EPINEPHrine INJ 1 MG/ML 1ML AMP IM PRN; +LORA1TAB23 PO; -LORA1TAB4 PO; -diphenhydrAMINE 50MG/ML VIAL IV PRN; -methylPREDNISolone 125MG 2ML VIAL IV PRN
[2022-09-21 17:15] LABS: BASO % 0.7 % (0.0-1.0); EOS % 0.7 % (0.0-3.0); HEMATOCRIT 35.3 % (36.0-47.0); HEMOGLOBIN 10.6 g/dl (12.0-15.5); LYMPH # 2.3 10^3/uL (1.5-5.0); LYMPH % 40.6 % (24.0-44.0); MEAN CORPUSCULAR HEMOGLOBIN 22.7 pg (27.0-33.0); MEAN CORPUSCULAR VOLUME 75.8 fl (80.0-96.0); MONO # 0.3 10^3/uL (0.0-0.8); MONO % 4.8 % (2.0-8.0); PLATELET COUNT, AUTOMATED 370 10^3/uL (150-450); RED BLOOD COUNT 4.66 10^6/uL (4.00-5.40); WHITE BLOOD COUNT 5.7 10^3/uL (4.0-10.0)
[2022-09-21 17:32] LABS: PERCENT SATURATION 5.8 % (13.2-45.0)
[2022-09-21 17:34] LABS: FERRITIN 4.4 NG/ML (7.3-270.7)
== END ==
LOC: M PLALAB 14:30
PROVIDERS: ATTEND Physician Assistant
DX: D50.9 Iron deficiency anemia, unspecified (principal); Z91.09 Other allergy status, other than to drugs and biological substances; J45.909 Unspecified asthma, uncomplicated

== ENCOUNTER → 2022-10-14 | Outpatient (CLI) | payer BC | LOC: M WHC 12:58 | PROVIDERS: ATTEND Physician Assistant | DX: M81.0 Age-related osteoporosis without current pathological fracture (principal) ==

== ENCOUNTER 2022-10-21 11:40 | Outpatient (CLI) | payer BC ==
[~2022-10-21] VITALS: Ht 165.1 cm; Wt 113.0 kg
[~2022-10-21 11:40] MED LIST changes: +ALBUTEROL SULFATE 2.5MG/0.5ML INH NEB SOLN INH PRN; +EPINEPHrine INJ 1 MG/ML 1ML AMP IM PRN; +FERRIC CARBOXYMALTOSE INJ 750 MG in NS 250 ML (>50kg) IV ONE; +NS 1,000 ML IV SCH; +diphenhydrAMINE 50MG/ML VIAL IV PRN; +methylPREDNISolone 125MG 2ML VIAL IV PRN
[2022-10-21 11:53] VITALS: BP 119/71; O2SAT 99
[2022-10-21 13:12] VITALS: BP 138/90; O2SAT 99
== END 2022-10-21 13:15 ==
LOC: M INFU 11:40
PROVIDERS: ATTEND Physician Assistant
DX: D50.9 Iron deficiency anemia, unspecified (principal); Z88.6 Allergy status to analgesic agent; Z88.5 Allergy status to narcotic agent; Z88.8 Allergy status to other drugs, medicaments and biological substances
CPT/HCPCS: 96365; J1439

== ENCOUNTER → 2022-12-22 | Outpatient (CLI) | payer BC ==
[~2022-12-22] MED LIST changes: -ALBUTEROL SULFATE 2.5MG/0.5ML INH NEB SOLN INH PRN; -EPINEPHrine INJ 1 MG/ML 1ML AMP IM PRN; -FERRIC CARBOXYMALTOSE INJ 750 MG in NS 250 ML (>50kg) IV ONE; -NS 1,000 ML IV SCH; -diphenhydrAMINE 50MG/ML VIAL IV PRN; -methylPREDNISolone 125MG 2ML VIAL IV PRN
[2022-12-22 17:47] LABS: BASO # 0.1 10^3/uL (0.0-0.2); BASO % 0.7 % (0.0-1.0); EOS # 0.1 10^3/uL (0.0-0.5); EOS % 1.9 % (0.0-3.0); HEMATOCRIT 46.2 % (36.0-47.0); HEMOGLOBIN 14.8 g/dl (12.0-15.5); LYMPH # 2.4 10^3/uL (1.5-5.0); LYMPH % 33.8 % (24.0-44.0); MEAN CORPUSCULAR HEMOGLOBIN 27.9 pg (27.0-33.0); MEAN CORPUSCULAR VOLUME 87.2 fl (80.0-96.0); MONO # 0.4 10^3/uL (0.0-0.8); MONO % 5.3 % (2.0-8.0); NEUTROPHILS # 4.2 10^3/uL (1.5-8.5); PLATELET COUNT, AUTOMATED 263 10^3/uL (150-450); WHITE BLOOD COUNT 7.2 10^3/uL (4.0-10.0)
[2022-12-22 17:55] LABS: HEMOGLOBIN A1c 5.5 % (4.0-6.0)
[2022-12-22 18:00] LABS: INR 0.93; PROTHROMBIN TIME 12.2 SECONDS (12.5-14.5)
[2022-12-22 18:10] LABS: FREE T4 1.19 NG/DL (0.89-1.76)
[2022-12-22 18:11] LABS: FERRITIN 123.9 NG/ML (7.3-270.7); IRON (FE) 74 UG/DL (50-170); THYROID STIMULATING HORMONE 1.458 uIU/ML (0.55-4.78); TOTAL 25(OH) VITAMIN D 42.6 NG/ML (20.0-100.0); TOTAL IRON BINDING CAPACITY 308 UG/DL (250-425); VITAMIN B12 LEVEL 506 PG/ML (211-911)
[2022-12-22 18:14] LABS: FOLATE > 24.0 NG/ML (>5.4)
== END ==
LOC: M PLALAB 16:27
PROVIDERS: ATTEND Physician Assistant
DX: Z86.39 Personal history of other endocrine, nutritional and metabolic disease (principal)

== ENCOUNTER → 2023-04-14 | Outpatient (CLI) | payer BC ==
[2023-04-14 18:08] LABS: BASO % 0.7 % (0.0-1.0); EOS # 0.1 10^3/uL (0.0-0.5); EOS % 1.6 % (0.0-3.0); HEMOGLOBIN 14.6 g/dl (12.0-15.5); LYMPH # 2.3 10^3/uL (1.5-5.0); LYMPH % 39.8 % (24.0-44.0); MEAN CORPUSCULAR HEMOGLOBIN 30.1 pg (27.0-33.0); MEAN CORPUSCULAR HGB CONC 32.4 g/dl (32.0-36.5); MEAN CORPUSCULAR VOLUME 92.8 fl (80.0-96.0); MONO # 0.3 10^3/uL (0.0-0.8); MONO % 5.6 % (2.0-8.0); PLATELET COUNT, AUTOMATED 259 10^3/uL (150-450); RED BLOOD COUNT 4.85 10^6/uL (4.00-5.40); WHITE BLOOD COUNT 5.7 10^3/uL (4.0-10.0)
[2023-04-14 18:30] LABS: PERCENT SATURATION 16.2 % (13.2-45.0)
[2023-04-14 18:34] LABS: FERRITIN 79.8 NG/ML (7.3-270.7); FREE T4 1.22 NG/DL (0.89-1.76); THYROID STIMULATING HORMONE 1.433 uIU/ML (0.55-4.78)
== END ==
LOC: M PLALAB 16:48 → M LAB 16:48
PROVIDERS: ATTEND Physician Assistant
DX: D50.9 Iron deficiency anemia, unspecified (principal); R53.83 Other fatigue

== ENCOUNTER → 2023-06-28 | Outpatient (CLI) | payer BC ==
[2023-06-28 17:49] LABS: BASO % 0.6 % (0.0-1.0); EOS # 0.1 10^3/uL (0.0-0.5); EOS % 1.1 % (0.0-3.0); HEMATOCRIT 45.5 % (36.0-47.0); HEMOGLOBIN 14.7 g/dl (12.0-15.5); LYMPH # 2.4 10^3/uL (1.5-5.0); LYMPH % 37.2 % (24.0-44.0); MEAN CORPUSCULAR HEMOGLOBIN 29.3 pg (27.0-33.0); MEAN CORPUSCULAR HGB CONC 32.3 g/dl (32.0-36.5); MEAN CORPUSCULAR VOLUME 90.6 fl (80.0-96.0); MONO # 0.4 10^3/uL (0.0-0.8); MONO % 6.2 % (2.0-8.0); NEUTROPHILS # 3.4 10^3/uL (1.5-8.5); NEUTROPHILS % 54.6 % (36.0-66.0); PLATELET COUNT, AUTOMATED 284 10^3/uL (150-450); RED BLOOD COUNT 5.02 10^6/uL (4.00-5.40); WHITE BLOOD COUNT 6.3 10^3/uL (4.0-10.0)
[2023-06-28 18:18] LABS: PERCENT SATURATION 15.9 % (13.2-45.0)
== END ==
LOC: M PLALAB 16:43
PROVIDERS: ATTEND Physician Assistant
DX: Z86.2 Personal history of diseases of the blood and blood-forming organs and certain disorders involving the immune mechanism (principal); R53.83 Other fatigue

== ENCOUNTER → 2023-12-26 | Outpatient (CLI) | payer BC ==
[2023-12-26 19:30] LABS: BASO # 0.1 10^3/uL (0.0-0.2); BASO % 0.7 % (0.0-1.0); EOS # 0.1 10^3/uL (0.0-0.5); EOS % 1.6 % (0.0-3.0); HEMATOCRIT 44.8 % (36.0-47.0); HEMOGLOBIN 14.5 g/dl (12.0-15.5); LYMPH # 2.6 10^3/uL (1.5-5.0); LYMPH % 38.4 % (24.0-44.0); MEAN CORPUSCULAR HEMOGLOBIN 29.8 pg (27.0-33.0); MEAN CORPUSCULAR HGB CONC 32.4 g/dl (32.0-36.5); MONO # 0.4 10^3/uL (0.0-0.8); MONO % 5.1 % (2.0-8.0); NEUTROPHILS # 3.7 10^3/uL (1.5-8.5); NEUTROPHILS % 53.9 % (36.0-66.0); PLATELET COUNT, AUTOMATED 284 10^3/uL (150-450); RED BLOOD COUNT 4.87 10^6/uL (4.00-5.40); WHITE BLOOD COUNT 6.9 10^3/uL (4.0-10.0)
[2023-12-26 19:49] LABS: HEMOGLOBIN A1c 5.4 % (4.0-6.0)
[2023-12-26 19:54] LABS: ALBUMIN 3.9 G/DL (3.2-5.2); ALKALINE PHOSPHATASE 109 U/L (46-116); ALT/SGPT 51 U/L (7.0-40); AST/SGOT 32 U/L (<34); BILIRUBIN,TOTAL 0.2 MG/DL (0.3-1.2); BLOOD UREA NITROGEN 16 MG/DL (9-23); CALCIUM LEVEL 9.7 MG/DL (8.5-10.1); CARBON DIOXIDE LEVEL 29 MMOL/L (20-31); CHLORIDE LEVEL 105 MMOL/L (98-107); CHOLESTEROL LEVEL 184 MG/DL (<200); CHOLESTEROL RISK RATIO 2.13 (<5); CREATININE FOR GFR 0.65 MG/DL (0.55-1.30); GLOMERULAR FILTRATION RATE > 60.0 (>58); GLUCOSE, FASTING 84 MG/DL (60-100); IRON (FE) 57 UG/DL (50-170); LDL CHOLESTEROL 79.6 MG/DL (<100); POTASSIUM SERUM 4.4 MMOL/L (3.5-5.1); SODIUM LEVEL 138 MMOL/L (136-145); TOTAL IRON BINDING CAPACITY 335 UG/DL (250-425); TOTAL PROTEIN 7.1 G/DL (5.7-8.2); TRIGLYCERIDES LEVEL 92 MG/DL (<150)
[2023-12-26 19:55] LABS: FERRITIN 38.7 NG/ML (7.3-270.7); FREE T4 1.24 NG/DL (0.89-1.76); THYROID STIMULATING HORMONE 1.582 uIU/ML (0.55-4.78)
[2023-12-26 19:56] LABS: TOTAL 25(OH) VITAMIN D 36.6 NG/ML (20.0-100.0); VITAMIN B12 LEVEL 411 PG/ML (211-911)
[2023-12-26 20:02] LABS: THYROID PEROXIDASE ANTIBODY 40 U/ML (<60.0)
== END ==
LOC: M PLALAB 16:11
PROVIDERS: ATTEND Physician Assistant
DX: Z00.00 Encounter for general adult medical examination without abnormal findings (principal); E55.9 Vitamin D deficiency, unspecified; Z86.2 Personal history of diseases of the blood and blood-forming organs and certain disorders involving the immune mechanism; D50.9 Iron deficiency anemia, unspecified; K91.2 Postsurgical malabsorption, not elsewhere classified; D72.819 Decreased white blood cell count, unspecified

== ENCOUNTER → 2024-05-06 | Outpatient (CLI) | payer BC ==
[~2024-05-06] MED LIST changes: +METF-1156 PO; -METF-817 PO
[2024-05-06 17:53] LABS: HEMATOCRIT 42.6 % (36.0-47.0); HEMOGLOBIN 13.8 g/dl (12.0-15.5); MEAN CORPUSCULAR HEMOGLOBIN 29.7 pg (27.0-33.0); MEAN CORPUSCULAR HGB CONC 32.4 g/dl (32.0-36.5); MEAN CORPUSCULAR VOLUME 91.8 fl (80.0-96.0); PLATELET COUNT, AUTOMATED 253 10^3/uL (150-450); RED BLOOD COUNT 4.64 10^6/uL (4.00-5.40)
[2024-05-06 18:24] LABS: TOTAL IRON BINDING CAPACITY 353 UG/DL (250-425)
[2024-05-06 18:25] LABS: ALBUMIN 3.6 G/DL (3.2-5.2); ALKALINE PHOSPHATASE 96 U/L (35-104); ALT/SGPT 65 U/L (7.0-40); AST/SGOT 34 U/L (<34); BILIRUBIN,TOTAL 0.2 MG/DL (0.3-1.2); BLOOD UREA NITROGEN 21 MG/DL (9-23); CALCIUM LEVEL 8.8 MG/DL (8.5-10.1); CARBON DIOXIDE LEVEL 29 MMOL/L (20-31); CHLORIDE LEVEL 104 MMOL/L (98-107); CREATININE FOR GFR 0.74 MG/DL (0.55-1.30); GLOMERULAR FILTRATION RATE > 60.0 (>58); GLUCOSE, FASTING 82 MG/DL (60-100); IRON (FE) 81 UG/DL (50-170); PERCENT SATURATION 22.9 % (13.2-45.0); POTASSIUM SERUM 4.4 MMOL/L (3.5-5.1); SODIUM LEVEL 142 MMOL/L (136-145); TOTAL PROTEIN 6.7 G/DL (5.7-8.2); VITAMIN B12 LEVEL 405 PG/ML (211-911)
[2024-05-06 18:26] LABS: FOLATE 8.1 NG/ML (>5.4); THYROID STIMULATING HORMONE 1.391 uIU/ML (0.55-4.78); TOTAL 25(OH) VITAMIN D 38.9 NG/ML (20.0-100.0)
[2024-05-06 18:27] LABS: FERRITIN 29.1 NG/ML (7.3-270.7); FREE T4 1.28 NG/DL (0.89-1.76)
[2024-05-06 18:29] LABS: HEMOGLOBIN A1c 5.3 % (4.0-6.0)
== END ==
LOC: M PLALAB 16:07
PROVIDERS: ATTEND Nurse Practitioner Family
DX: E55.9 Vitamin D deficiency, unspecified (principal); K76.0 Fatty (change of) liver, not elsewhere classified; R11.0 Nausea; Z86.2 Personal history of diseases of the blood and blood-forming organs and certain disorders involving the immune mechanism; Z12.11 Encounter for screening for malignant neoplasm of colon

== ENCOUNTER → 2024-05-21 | Outpatient (CLI) | payer BC | LOC: M RAD 09:13 | PROVIDERS: ATTEND Nurse Practitioner Family | DX: K76.0 Fatty (change of) liver, not elsewhere classified (principal) ==

== ENCOUNTER → 2024-05-23 | Outpatient (CLI) | payer BC ==
[~2024-05-23] MED LIST changes: +PROHANCE 279.3MG/ML 15ML VIAL ONE; +PROHANCE 279.3MG/ML 5ML VIAL ONE
== END ==
LOC: M PLAIMG 08:07
PROVIDERS: ATTEND Internal Medicine Interventional Cardiology
DX: R16.0 Hepatomegaly, not elsewhere classified (principal)

== ENCOUNTER → 2024-10-09 | Outpatient (CLI) | payer BC ==
[~2024-10-09] MED LIST changes: -PROHANCE 279.3MG/ML 15ML VIAL ONE; -PROHANCE 279.3MG/ML 5ML VIAL ONE
[2024-10-09 17:34] LABS: PLATELET COUNT, AUTOMATED 281 10^3/uL (150-450)
[2024-10-09 17:38] LABS: IRON (FE) 70 UG/DL (50-170); PERCENT SATURATION 18.1 % (13.2-45.0); TOTAL 25(OH) VITAMIN D 39.2 NG/ML (20.0-100.0)
[2024-10-09 17:39] LABS: ALT/SGPT 45 U/L (7.0-40); AST/SGOT 39 U/L (<34); CALCIUM LEVEL 8.9 MG/DL (8.5-10.1); CARBON DIOXIDE LEVEL 28 MMOL/L (20-31); CHLORIDE LEVEL 103 MMOL/L (98-107); CHOLESTEROL LEVEL 167 MG/DL (<200); CHOLESTEROL RISK RATIO 1.88 (<5); CREATININE FOR GFR 0.82 MG/DL (0.55-1.30); FREE T4 1.11 NG/DL (0.89-1.76); GLOMERULAR FILTRATION RATE > 90.0 (>58); LDL CHOLESTEROL 57.0 MG/DL (<100); NON-HDL-C 78.4 MG/DL; POTASSIUM SERUM 4.7 MMOL/L (3.5-5.1); SODIUM LEVEL 141 MMOL/L (136-145); TRIGLYCERIDES LEVEL 107 MG/DL (<150); VITAMIN B12 LEVEL 405 PG/ML (211-911)
== END ==
LOC: M PLALAB 15:04
PROVIDERS: ATTEND Nurse Practitioner Family
DX: K76.0 Fatty (change of) liver, not elsewhere classified (principal); Z86.2 Personal history of diseases of the blood and blood-forming organs and certain disorders involving the immune mechanism; F41.9 Anxiety disorder, unspecified; E55.9 Vitamin D deficiency, unspecified; Z13.220 Encounter for screening for lipoid disorders

== ENCOUNTER → 2024-12-19 | Outpatient (CLI) | payer BC ==
[2024-12-19 15:59] LABS: PLATELET COUNT, AUTOMATED 299 10^3/uL (150-450)
[2024-12-19 16:01] LABS: ALT/SGPT 47 U/L (7.0-40); AST/SGOT 39 U/L (<34); CALCIUM LEVEL 9.2 MG/DL (8.5-10.1); CARBON DIOXIDE LEVEL 29 MMOL/L (20-31); CHLORIDE LEVEL 105 MMOL/L (98-107); CREATININE FOR GFR 0.69 MG/DL (0.55-1.30); GLOMERULAR FILTRATION RATE > 90.0 (>58); IRON (FE) 73 UG/DL (50-170); PERCENT SATURATION 17.6 % (13.2-45.0); POTASSIUM SERUM 4.5 MMOL/L (3.5-5.1); SODIUM LEVEL 141 MMOL/L (136-145)
[2024-12-19 16:05] LABS: FREE T4 1.40 NG/DL (0.89-1.76); VITAMIN B12 LEVEL 450 PG/ML (211-911)
[2024-12-19 16:38] LABS: ESTIMATED AVERAGE GLUCOSE 111.0 MG/DL (60-110)
== END ==
LOC: M PLALAB 13:41
PROVIDERS: ATTEND Nurse Practitioner Family
DX: R53.83 Other fatigue (principal)